=== PATIENT | male | born 1940 | race Caucasian/White ===

== ENCOUNTER → 2016-12-13 | Outpatient (CLI) | payer OTHER ==
[2016-12-13 12:48] LABS: ALT/SGPT 30 U/L (12-78); BLOOD UREA NITROGEN 9 mg/dl (7-18); BUN/CREATININE RATIO 7.8 (10-20); CALCIUM 9.2 mg/dl (8.5-10.1); CARBON DIOXIDE 24 mmol/L (21-32); CHLORIDE 108 mmol/L (98-107); CHOLESTEROL 176 mg/dl (0-200); GLUCOSE 95 mg/dl (70-99); POTASSIUM 3.8 mmol/L (3.5-5.1); SODIUM 140 mmol/L (136-145); TRIGLYCERIDES 131 mg/dl (0-150); VERY LOW DENSITY LIPOPROT CALC 26 mg/dl
[2016-12-13 12:55] LABS: ALKALINE PHOSPHATASE 123 U/L (45-117); AST/SGOT 21 U/L (15-37); CHOLESTEROL/HDL RATIO 4.4; HDL CHOLESTEROL 40 mg/dl; LDL CHOLESTEROL CALCULATED 110 mg/dl
== END | disposition home or self-care (01) ==
LOC: C.LABPVFM 07:35
PROVIDERS: ATTEND Nurse Practitioner Family
DX: R74.8 Abnormal levels of other serum enzymes (principal); Z13.220 Encounter for screening for lipoid disorders

== ENCOUNTER 2024-10-13 09:15 | Inpatient (IN) ==
[2024-10-13 09:50] LABS: Hematocrit (blood only) 40.0 % (42.0-52.0); Hemoglobin 13.7 g/dl (14.0-18.0); Immature Granulocytes # (auto) 0.01 K/uL (0.01-0.20); Immature Granulocytes % (auto) 0.2 %; Mean Corpuscular Hemoglobin 34.1 pg (25.0-34.0); Mean Corpuscular Volume 99.5 fL (80.0-100.0); Platelet Count 267 K/uL (130-400); RDW Standard Deviation 50.4 fL (36.4-46.3); Red Blood Count 4.02 M/uL (4.70-6.10); White Blood Count 4.65 K/ul (4.8-10.8)
--- NOTE | 2024-10-13 09:55 | XRay Report ---
XR chest 1V portable CLINICAL HISTORY: Abdominal Pain COMPARISON STUDY: None FINDINGS: Heart size and pulmonary vasculature are normal. Inspiration is shallow. There are is mild stranding opacity in the lung bases. No other consolidation or pleural effusion. No pneumothorax. IMPRESSION: Likely mild atelectasis in the lung bases. Follow-up as clinically indicated. ACT 112: Negative or not required by law. Electronically signed by: Thad Gilliam M.D. 10/13/2024 9:53 AM
[2024-10-13 10:09] LABS: Alanine Aminotransferase 14.0 U/L (7-52); Albumin Globulin Ratio 1.0 (0.9-2); Alkaline Phosphatase 105.0 U/L (34-104); Anion Gap 9.0 (3-11); Bilirubin,Total 0.5 mg/dl (0.2-1.0); Blood Urea Nitrogen 15.0 mg/dl (6-23); Calcium 9.1 mg/dl (8.6-10.3); Carbon Dioxide 23.0 mmol/L (21-32); Chloride 106.0 mmol/L (98-107); Creatinine Clr Calc Pharmacy 48.1 ml/min; Globulin 3.9 gm/dl (2.5-4.0); Glucose 152.0 mg/dl (70-99(Fasting)); Lipase 27.0 U/L (11-82); Potassium 3.4 mmol/L (3.5-5.1); Sodium 138.0 mmol/L (136-145); Total Protein 7.9 gm/dl (6.0-8.3)
[2024-10-13 10:19] LABS: INR 1.0 (0.9-1.1); Partial Thromboplastin Time 22 Seconds (21-31); Prothrombin Time 10.6 Seconds (9.0-12.0)
[2024-10-13] MEDS: HYDROmorphone INJ 0.5 MG/0.5 ML SYR IV STA (10:22)
[2024-10-13] MEDS: OPTIRAY 320 125ml IV ONE (10:39)
[2024-10-13] MEDS: ONDANSETRON INJ 2 MG/ML 2 ML VIAL IV STA ×2 (10:47→10:55)
[2024-10-13] MEDS ORDERED: Heparin IV Adult Wt-Based Low-Dose w/ INITIAL Bolus Protocol IV STA (10:56)
--- NOTE | 2024-10-13 10:57 | CT Scan Report ---
CT angio abdomen pelvis w con CLINICAL HISTORY: dissection. chest pain, syncope TECHNIQUE: Following the IV administration of 120 cc of Optiray, CT angiogram of the abdomen and pelv is was performed from the lung bases the proximal femora. Images are reviewed in the axial, sagittal, and coronal planes. 3-D MIPS images are created and assessed. All measurements were obtained accordi ng to NASCET criteria. IV contrast was administered without complication. A dose lowering technique was utilized adhering to the principles of ALARA. CT DOSE: 1987.92 mGy.cm COMPARISON STUDY: None FINDINGS: There is a moderate hiatal hernia. CTA: There is no abdominal aortic aneurysm or dissection. Mesenteric and renal arteries are widely pa tent. Visualized arterial outflow shows no significant narrowing. ABDOMEN: Liver, gallbladder, spleen, pancreas, and adrenal glands are unremarkable. Kidneys show no h ydronephrosis. Pelvis: Prostate is enlarged. Urinary bladder is nondistended. There is mild sigmoid diverticulosis. No acute diverticulitis. There is mild retained stool. No bowel inflammation or obstruction. No free fluid or free air. No enlarged adenopathy. Osseous structures: There is osteopenia. There are subacute healing fractures laterally at the right sixth and seventh ribs. There is diffuse lumbar degenerative disc disease. There are mild degenerativ e changes at the hips. No acute osseous finding seen. IMPRESSION: 1. No acute findings. No evidence of abdominal aortic dissection or aneurysm. 2. Otherwise as described. ACT 112: Negative or not required by law. The above report was generated using voice recognition software. It may contain grammatical, syntax o r spelling errors. Electronically signed by: Thad Gilliam M.D. 10/13/2024 10:55 AM
--- NOTE | 2024-10-13 10:58 | CT Scan Report ---
CT ANGIOGRAM OF THE CHEST CLINICAL HISTORY: Chest pain. Syncope. COMPARISON STUDY: Chest x-ray dated 10/13/2024. TECHNIQUE: Following the IV administration of 118 cc of Optiray 320, CT angiogram of the chest was pe rformed from the thoracic inlet to the upper abdomen utilizing the dissection protocol. Images are re viewed in the axial, sagittal, and coronal planes. 3-D MIPS images are created and assessed. IV contr ast was administered without complication. A dose lowering technique was utilized adhering to the pr inciples of ZHANE. The examination is degraded by motion artifact, as well as by streak artifact from the arms which could not be elevated above the chest. FINDINGS: Thyroid: Imaged portions of the thyroid gland are normal in size and attenuation. Thoracic aorta: The thoracic aorta is normal in caliber and demonstrates standard 3-vessel arch anato my. No dissection is seen. The arch vessels are widely patent. Pulmonary vasculature: The pulmonary trunk is normal in caliber. There are no central filling defects identified in the pulmonary vessels to suggest pulmonary embolus. Note that this examination was not specifically protocoled to assess for pulmonary emboli. Heart: The heart is normal in size and without pericardial effusion. There is coronary artery atheros clerosis. Lungs and pleural spaces: Evaluation of the lung parenchyma is degraded by motion artifact. No airspa ce consolidation or pleural effusion is identified. There is no pneumothorax. The trachea and central airways are clear. Dependent scarring/atelectasis is noted at both lung bases. A fat-containing Rojas dalek hernia is seen on the right. There are scattered calcified granulomas. Mediastinum: There are mildly enlarged mediastinal nodes. AP window nodes measure up to 1.5 cm in pawel rt axis. A right paratracheal node measures 1.4 cm in short axis. Angy: An enlarged right hilar node on image #113 measures 2.9 x 2.0 cm. No left hilar adenopathy is s een. Axillae: There is no axillary lymphadenopathy. Upper abdomen: There is a moderate to large hiatal hernia. Diverticulosis is noted in the partially i ana left colon. A 1.5 cm cyst is seen in the upper pole of the kidney. Skeletal structures: The skeletal structures are osteopenic. Degenerative change and mild hyperkyphos is is noted in the thoracic spine. There are mild chronic appearing compression deformities of C6 and C7. Arthritic change is noted in the shoulders. No lytic or blastic bony lesions are seen. There are numerous subacute appearing right-sided (second through sixth) rib fractures. IMPRESSION: 1. Unremarkable CT angiogram of the thoracic aorta. 2. There is no airspace consolidation or pleural effusion. 3. There are numerous subacute/healing right-sided rib fractures. 4. Moderate to large hiatal hernia. 5. There are nonspecific enlarged right hilar and mediastinal lymph nodes. These are pathologically i ndeterminant, and nonemergent follow-up with pulmonology is recommended as is a follow-up chest CT in 2-3 months time for reevaluation. 6. Additional findings as above. ACT 112: Positive. There are findings on this exam that require communication between the performing entity and the patient following Patient Test Result Information Act ([place] Act 112) guidelines. Electronically signed by: Mina Armenta M.D. 10/13/2024 10:56 AM
[2024-10-13] MEDS: ASPIRIN CHEW 324 MG PO STA (11:07)
--- NOTE | 2024-10-13 11:23 | History & Physical Report ---
Date of Service October 13, 2024 Assessment & Plan (1) STEMI (ST elevation myocardial infarction): (2) LBBB (left bundle branch block): (3) Syncope: (4) GERD without esophagitis: (5) BPH (benign prostatic hyperplasia): (6) Rib fractures: (7) Lymphadenopathy: (8) Tobacco use: (9) Hiatal hernia: (10) Fall: (11) Abrasion of leg, left: (12) Confusion: Plan 84yo male with history of BPH and GERD who presents from home after developing chest pain/upper abdominal pain about 0800 this morning followed by a suspected syncopal event. Upon arrival to [facility] ER his EKG showed a LBBB (no prior EKG for comparison available) and he had ongoing chest pain/abdominal pain. Despite nitroglycerin and narcotic pain medicine his pain persisted. Later EKGs showed ongoing evolution of his ST segments with V5/V6 ST segment elevation. Given his presentation, the presumed new LBBB, ST segment elevations, +troponin, etc. Dr Cameron Shaw from cardiology was contacted and Mr Douglas was advised to have emergent left heart catheterization. #acute IA / STEMI - -heparin infusion initiated in the ER -aspirin 325mg x 1 given -O2 applied, SL nitro given (but unfortunately caused hypotension), narcotics given for refractory pain -emergent cardiology consultation with Dr Cameron Shaw for left heart catheterization -results of left heart catheterization will dictate the rest of his care plan -echocardiogram -check lipids, hemoglobin a1c, TSH -will ultimately need high-intensity statin, aspirin (+ Plavix vs Brilinta), and beta yang if blood pressure can tolerate -serial troponins until peak -appreciate cardiology consultation #LBBB - -presumed 2nd to acute IA -echocardiogram #syncope - -could have had transient hypotension in the setting of his acute IA vs arrhythmia -echocardiogram to assess LV function, etc. -telemetry #fall with resulting right-sided rib fractures - -right 2nd-6th rib fractures - likely suffered when he had his fall ~2 weeks ago -pain control - pain meds, lidoderm patches, etc. -check a 25-OH vit D level while here -of note - fall was accidental; he had no prodromal cardiopulmonary symptoms prior to the fall #mild confusion - -pain meds in ER, hypotension, etc all likely to blame -serial exams, supportive care #hypokalemia - -replace, repeat BMP am -mag noted to be normal #hyperglycemia - -check a hemoglobin a1c while here, r/o pre-DM or T2DM #mild leukopenia, mild anemia - -chronic based on old lab values #GERD / hiatal hernia - -if on aspirin +/- Plavix/Brilinta he should be on PPI moving forward at a higher dose (was only on omeprazole 20mg daily pre-admission) #BPH - -continue flomax if BP will tolerate #head injury - -suffered 2 weeks ago when he fell -consider head CT #lymphadenopathy - -intra-thoracic lymph nodes seen on CT chest -with his smoking history this will need additional work-up; very suspicious for lung cancer #DVT proph - -heparin drip for now, post-cath DVT prophylaxis selection to be determined #abrasion of left leg - -due to fall today / syncopal event -local wound care History of Present Illness Chief Complaint: chest pain, ?syncope Primary Care Provider: CLARISSA Mujica 84yo male with h/o BPH and GERD who presented via EMS due to ongoing chest pain/upper abdominal pain beginning about 0800 this morning. Patient told his family that he slept poorly last night, then about 0800 he went out to the family's barn to feed 2 cows. After finishing that task he began to walk back to the house at which point he developed severe lower chest pain and upper abdominal pain. He "couldn't make it back" [to the house] and collapsed to the ground. He is not sure if he passed out. Apparently some individuals were driving past the house and saw him lying on the ground and stopped to check on him. At that point 911 was called. Since arrival to [facility] he has had continued lower chest and upper abdominal pain. EKG showed NSR with LBBB; unfortunately no prior EKG was available for comparison. He had transient relief of pain with IV dilaudid earlier in the ER visit. By the time of my assessment his pain was 6/10 on pain scale. Numerous times, however, he was grimacing in pain and holding his chest and upper abdomen with his arm. He does report having had a fall about 2 weeks ago. He struck the front of his head, his face, and the right chest wall. He had pain for several days in the right chest but today the pain he is having is much different. In addition to the pain he has been short of breath all morning, has had nausea, and had multiple episodes of emesis. He also suffered a mild abrasion inferior to the left knee from today's syncope/fall episode. During my assessment, due to ongoing pain, 1 SL nitro x 1 was given with relief of pain to 3/10. However, with the nitro, his BP dropped to the low 80s systolic. Fluid bolus was given, and heparin drip was started. Patient denies any prior episodes of exertional chest pain or exertional dyspnea. The fall 2 weeks ago was accidental, tripping on his shoelace. No headaches despite the report of hitting his head. Allergies Allergy/AdvReac Type Severity Reaction Status Date / Time No Known Allergies Allergy Verified 09/13/24 08:46 Home Medications Medication Instructions Recorded Confirmed Type omeprazole 20 mg capsule,delayed 20 mg PO DAILY #90 caps 02/17/24 10/13/24 Rx release tamsulosin 0.4 mg capsule 0.4 mg PO DAILY #30 caps 09/13/24 10/13/24 Rx aspirin 81 mg tablet,delayed 0 mg PO DAILY 10/13/24 10/13/24 History release (Adult Aspirin Regimen) melatonin 5 mg capsule 5 - 10 mg PO UD 10/13/24 10/13/24 History triamcinolone acetonide 0.1 % 1 applic topical UD 10/13/24 10/13/24 History topical cream Past Med/Surg History Problem List (Updated 10/14/24 @ 03:32 by Daniel Stein MD) STEMI (ST elevation myocardial infarction) Acute myocardial infarction Confusion Abrasion of leg, left Fall Hiatal hernia Tobacco use Lymphadenopathy Rib fractures Syncope LBBB (left bundle branch block) NSTEMI (non-ST elevated myocardial infarction) Insomnia Depression Cognitive change Weakness of left leg Balance problem Back pain Dermatitis (Chronic) Dry mouth (Chronic) Medical History (Updated 10/14/24 @ 03:32 by Daniel Stein MD) GERD without esophagitis BPH (benign prostatic hyperplasia) Surgical History History of oral surgery History of back surgery Family History (Updated 10/13/24 @ 12:35 by Daniel Stein MD) Brother Cancer Myocardial infarction Sister Cancer Father Lung cancer Denies family history of Ovarian cancer Prostate cancer Breast cancer Colorectal cancer Social History (Updated 10/13/24 @ 12:36 by Daniel Stein MD) Smoking Status: Current some day smoker Tobacco Type: Cigars Cigarettes Per Day: ongoing cigar use; smoked cigarettes during teenage years; Second Hand Exposure: No; Do You Dip or Chew Tobacco: No; Tobacco Cessation Education Requested by Patient: No Hx Alcohol Use: No Hx Substance Use: No Preferred Language: Georgian Communication Ability: Effective Visual Impairment: Limited Hearing Ability: Use of Hearing Aid Legal Billing Clerk Required: No Beliefs That Will Affect Care: None marital status: Single Current Living Situation: Family Current Living Situation Comment: SON current occupational status: retired current occupation: retired [employer] How many Children do You have: 7 Other Information That Helps Us Care for You: No Feels Safe at Home: Yes Safety Concerns: Feels Safe At This Time Childhood Exposure to Second-Hand Smoke: Yes Diet: regular caffeine: Yes (Coffee and soda) during the past year weight has: remained stable Dental Care, Regularly: No Physical Activity Frequency: Daily Seatbelt Use: always Sunscreen Use: No Do you think of yourself as: straight/heterosexual Gender Identity: Male Assistive Devices: Denture - Upper, Denture - Lower, Glasses and Hearing Aid - Left Review of Systems Review of Systems: gen - no recent illnesses, no fevers HENT - no URI symptoms CV - chest pain, syncope; no edema pulm - dyspnea, but no cough; no TAVARES at baseline GI - upper abd pain, n/v musculo - c/o right arm pain "from the cuff"; right chest wall pain (ribs) skin - no rashes neuro - no headaches, no focal motor weakness endo - no history of diabetes Physical Exam Physical Exam: gen - confused, very uncomfortable, grimacing in pain at times skin - ashen color at times; abrasion inferior to left knee on tibial plateau region; no generalized rash eyes - PERRL HENT - MM dry, no lesions neck - no JVD, no lymph nodes heart - tones quite distant, s1 s2, RRR, no obvious murmur lungs - CTA b/l abd - tender upper abdomen to palpation, BS+, ND, no HSM ext - no edema, pulses b/l feet 2+ vascular - radial pulses 2+ b/l neuro - motor strength grossly 5/5 x 4 exts psych - poor historian, seems mildly confused Results & Data Results & Data Vital Signs (Past 12 Hours) Vital Signs Temp Pulse Pulse Resp BP BP Pulse Ox 10/13/24 10:20 59 L 18 144/89 H 100 10/13/24 09:41 52 L 10/13/24 09:40 95 10/13/24 09:02 36.9 C 55 L 18 127/81 95 O2 Del Method 10/13/24 10:20 Room Air 10/13/24 09:41 10/13/24 09:40 Room Air 10/13/24 09:02 Room Air Laboratory Results Laboratory Results - last 24 hr 10/13/24 10/13/24 09:30 11:41 WBC 4.65 L RBC 4.02 L Hgb 13.7 L Hct 40.0 L MCV 99.5 MCH 34.1 H MCHC 34.3 RDW Std Deviation 50.4 H RDW Coeff of Jo 13.7 Plt Count 267 MPV 9.9 Immature Gran % (Auto) 0.2 Neut % (Auto) 72.2 Lymph % (Auto) 17.2 Maries % (Auto) 8.4 Eos % (Auto) 1.1 Baso % (Auto) 0.9 Neut # (Auto) 3.36 Lymph # (Auto) 0.80 L Maries # (Auto) 0.39 Eos # (Auto) 0.05 Baso # (Auto) 0.04 Immature Gran # (Auto) 0.01 PT 10.6 INR 1.0 APTT 22 PTT Ratio 0.8 Sodium 138 Potassium 3.4 L Chloride 106 Carbon Dioxide 23 Anion Gap 9 BUN 15 Creatinine 1.30 Est Cr Clr Drug Dosing 48.1 eGFR 54.85 BUN/Creatinine Ratio 11.5 Glucose 152 H Calcium 9.1 Magnesium 1.9 Total Bilirubin 0.5 AST 19 ALT 14 Alkaline Phosphatase 105 H Troponin I High Sens 115.0 H* 142.6 H* D Total Protein 7.9 Albumin 4.0 Globulin 3.9 Albumin/Globulin Ratio 1.0 Lipase 27 Diagnostic Findings Chest X-Ray 10/13/24 09:35 XR chest 1V portable CLINICAL HISTORY: Abdominal Pain COMPARISON STUDY: None FINDINGS: Heart size and pulmonary vasculature are normal. Inspiration is shallow. There are is mild stranding opacity in the lung bases. No other consolidation or pleural effusion. No pneumothorax. IMPRESSION: Likely mild atelectasis in the lung bases. Follow-up as clinically indicated. ACT 112: Negative or not required by law. Electronically signed by: Thad Gilliam M.D. 10/13/2024 9:53 AM Abdomen/Pelvis CTA 10/13/24 10:16 CT angio abdomen pelvis w con CLINICAL HISTORY: dissection. chest pain, syncope TECHNIQUE: Following the IV administration of 120 cc of Optiray, CT angiogram of the abdomen and pelvis was performed from the lung bases the proximal femora. Images are reviewed in the axial, sagittal, and coronal planes. 3-D MIPS images are created and assessed. All measurements were obtained according to NASCET criteria. IV contrast was administered without complication. A dose lowering technique was utilized adhering to the principles of ALARA. CT DOSE: 1987.92 mGy.cm COMPARISON STUDY: None FINDINGS: There is a moderate hiatal hernia. CTA: There is no abdominal aortic aneurysm or dissection. Mesenteric and renal arteries are widely patent. Visualized arterial outflow shows no significant narrowing. ABDOMEN: Liver, gallbladder, spleen, pancreas, and adrenal glands are unremarkable. Kidneys show no hydronephrosis. Pelvis: Prostate is enlarged. Urinary bladder is nondistended. There is mild sig moid diverticulosis. No acute diverticulitis. There is mild retained stool. No bowel inflammation or obstruction. No free fluid or free air. No enlarged adenopathy. Osseous structures: There is osteopenia. There are subacute healing fractures laterally at the right sixth and seventh ribs. There is diffuse lumbar degenerative disc disease. There are mild degenerative changes at the hips. No acute osseous finding seen. IMPRESSION: 1. No acute findings. No evidence of abdominal aortic dissection or aneurysm. 2. Otherwise as described. ACT 112: Negative or not required by law. The above report was generated using voice recognition software. It may contain grammatical, syntax or spelling errors. Electronically signed by: Thad Gilliam M.D. 10/13/2024 10:55 AM Chest CTA 10/13/24 10:16 CT ANGIOGRAM OF THE CHEST CLINICAL HISTORY: Chest pain. Syncope. COMPARISON STUDY: Chest x-ray dated 10/13/2024. TECHNIQUE: Following the IV administration of 118 cc of Optiray 320, CT angiogram of the chest was performed from the thoracic inlet to the upper abdomen utilizing the dissection protocol. Images are reviewed in the axial, sagittal, and coronal planes. 3-D MIPS images are created and assessed. IV contrast was administered without complication. A dose lowering technique was utilized adhering to the principles of ALARA. The examination is degraded by motion artifact, as well as by streak artifact from the arms which could not be elevated above the chest. FINDINGS: Thyroid: Imaged portions of the thyroid gland are normal in size and a ttenuation. Thoracic aorta: The thoracic aorta is normal in caliber and demonstrates standard 3-vessel arch anatomy. No dissection is seen. The arch vessels are widely patent. Pulmonary vasculature: The pulmonary trunk is normal in caliber. There are no central filling defects identified in the pulmonary vessels to suggest pulmonary embolus. Note that this examination was not specifically protocoled to assess for pulmonary emboli. Heart: The heart is normal in size and without pericardial effusion. There is coronary artery atherosclerosis. Lungs and pleural spaces: Evaluation of the lung parenchyma is degraded by motion artifact. No airspace consolidation or pleural effusion is identified. There is no pneumothorax. The trachea and central airways are clear. Dependent scarring/atelectasis is noted at both lung bases. 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 There are scattered calcified granulomas. Mediastinum: There are mildly enlarged mediastinal nodes. AP window nodes measure up to 1.5 cm in short axis. A right paratracheal node measures 1.4 cm in short axis. Angy: An enlarged right hilar node on image #113 measures 2.9 x 2.0 cm. No left hilar adenopathy is seen. Axillae: There is no axillary lymphadenopathy. Upper abdomen: There is a moderate to large hiatal hernia. Diverticulosis is noted in the partially imaged left colon. A 1.5 cm cyst is seen in the upper pole of the kidney. Skeletal structures: The skeletal structures are osteopenic. Degenerative change and mild hyperkyphosis is noted in the thoracic spine. There are mild chronic appearing compression deformities of C6 and C7. Arthritic change is noted in the shoulders. No lytic or blastic bony lesions are seen. There are numerous subacute appearing right-sided (second through sixth) rib fractures. IMPRESSION: 1. Unremarkable CT angiogram of the thoracic aorta. 2. There is no airspace consolidation or pleural effusion. 3. There are numerous subacute/healing right-sided rib fractures. 4. Moderate to large hiatal hernia. 5. There are nonspecific enlarged right hilar and mediastinal lymph nodes. These are pathologically indeterminant, and nonemergent follow-up with pulmonology is recommended as is a follow-up chest CT in 2-3 months time for reevaluation. 6. Additional findings as above. ACT 112: Positive. There are findings on this exam that require communication between the performing entity and the patient following Patient Test Result Information Act ([place] Act 112) guidelines. Electronically signed by: Mina Armenta M.D. 10/13/2024 10:56 AM EKG #1 - NSR, LBBB, V2 with ST depression EKG #2 - NSR, LBBB, V5/V6 mild J-point elevation / ST segment elevation Code Status & VTE Plan Code Status full code PG Care Time/CCT Total # of Minutes Spent Total Time Spent with Patient: Total time spent is greater than 50% in coordination of care (as documented) at patient's floor/unit and/or counseling patient: Coding Level of Care Code 38787 INT INP/OBS CARE 3/75MIN Diagnoses STEMI (ST elevation myocardial infarction) I21.3 LBBB (left bundle branch block) I44.7 Syncope R55 GERD without esophagitis K21.9 Benign prostatic hyperplasia with urinary frequency N40.1; R35.0 Lower urinary tract symptom detail: urinary frequency Lower urinary tract symptom presence: symptoms present Rib fractures S22.49XA Lymphadenopathy R59.1 Tobacco use Z72.0 Hiatal hernia K44.9 Fall W19.XXXA Abrasion of leg, left S80.812A Confusion R41.0 (5) BPH (benign prostatic hyperplasia) Lower urinary tract symptom detail: urinary frequency Lower urinary tract symptom presence: symptoms present Qualified Code(s): N40.1 - Benign prostatic hyperplasia with lower urinary tract symptoms; R35.0 - Frequency of micturition
[2024-10-13] MEDS: NITROGLYCERIN SL 0.4 MG/TAB TAB ONE ×2 (11:48→12:13)
[2024-10-13] MEDS: HEPARIN SOD (PORCINE) 1000 UNIT/ML IV ONE (12:02)
[2024-10-13] MEDS: HEPARIN 25000 UNIT/500 ML D5W 25,000 UNITS/500 ML BAG IV SCH (12:04)
[2024-10-13] MEDS: SODIUM CHLORIDE 0.9% 1,000 ML IV SCH (12:13)
[2024-10-13 12:21] LABS: Magnesium 1.9 mg/dl (1.7-2.4)
[2024-10-13] MEDS: HEPARIN (PORCINE) 1000 UNIT/ML 10 ML (CATH LAB USE ONLY) ONE (13:52)
[2024-10-13] MEDS: MIDAZOLAM HCL 1 MG/ML 2ML VIAL ONE (13:58)
[2024-10-13] MEDS: niCARdipine 2,000 MCG/20 ML SYR ONE (13:58)
[2024-10-13] MEDS: ONDANSETRON INJ 2 MG/ML 2 ML VIAL ONE (13:58)
[2024-10-13] MEDS: NITROGLYCERIN/D5W 100MCG/ML 20ML SYR ONE (13:58)
[2024-10-13] MEDS: CLOPIDOGREL BISULFATE 300 MG TAB ONE (13:58)
[2024-10-13] MEDS: ATROPINE SULFATE 0.1 MG/ML 10ML SYR IV ONE (13:58)
--- NOTE | 2024-10-13 13:58 | Post Anesthesia Assessment ---
Date of Service October 13, 2024 Post Sedation Assessment Vital Signs Temp Pulse Pulse Resp BP BP Pulse Ox 10/13/24 12:16 70 18 105/65 98 10/13/24 12:10 89 L 10/13/24 12:00 55 L 18 89/60 L 89 L 10/13/24 11:00 57 L 18 136/86 95 10/13/24 10:20 59 L 18 144/89 H 100 10/13/24 09:41 52 L 10/13/24 09:40 95 10/13/24 09:02 98.4 F 55 L 18 127/81 95 O2 Del Method O2 Flow Rate 10/13/24 12:16 Nasal Cannula 3 10/13/24 12:10 Room Air, Nasal Cannula 0 10/13/24 12:00 Room Air 10/13/24 11:00 Room Air 10/13/24 10:20 Room Air 10/13/24 09:41 10/13/24 09:40 Room Air 10/13/24 09:02 Room Air Recovery Score Activity: Moves 4 extremities Respiration: Deep Breath/Cough Circulation: +/-20% PreAnes Value Consciousness: Fully Awake Oxygen Saturation: O2 needed for >90% Discharge Sedation Level of Care: Fast Track Phase II
--- NOTE | 2024-10-13 13:58 | Pre Anesthesia Assessment ---
Date of Service October 13, 2024 Pre Sedation Assessment Vital Signs Temp Pulse Pulse Resp BP BP Pulse Ox 10/13/24 12:16 70 18 105/65 98 10/13/24 12:10 89 L 10/13/24 12:00 55 L 18 89/60 L 89 L 10/13/24 11:00 57 L 18 136/86 95 10/13/24 10:20 59 L 18 144/89 H 100 10/13/24 09:41 52 L 10/13/24 09:40 95 10/13/24 09:02 98.4 F 55 L 18 127/81 95 O2 Del Method O2 Flow Rate 10/13/24 12:16 Nasal Cannula 3 10/13/24 12:10 Room Air, Nasal Cannula 0 10/13/24 12:00 Room Air 10/13/24 11:00 Room Air 10/13/24 10:20 Room Air 10/13/24 09:41 10/13/24 09:40 Room Air 10/13/24 09:02 Room Air Cardiovascular + regular rate Respiratory + respiratory effort normal Pre-Sedation Airway Assessment Smoking Status: Current some day smoker Hx Sleep Apnea: No Hx Difficult Intubation: No Short, Thick Neck: No Thyromental Distance: < 3.5 Finger Breadths Oral Cavity: + WNL Mallampati Class: III ASA: ASA3 Procedure Planning Contraindications for Sedation: none Current Medications Reviewed: Yes Notes The planned sedation has been discussed with the patient. Informed Consent was obtained. I have identified the patient, determined the appropriateness of sedation and have assessed the patient immediately prior to the procedure. All medicine(s) and interventions are by my order.
[2024-10-13] MEDS: OPTIRAY 350 ONE (13:59)
--- NOTE | 2024-10-13 13:59 | Cardiac Catheterization ---
[facility] Data: Metal Buffer Cardiac Status Clinical evaluation leading to the procedure CAD Presenation: STEMI Anginal Classification: CCS IV Diagnostic Physicians Name: Cameron Shaw MD Closure Device Recommendations: PCI without planned CABG Cardiac Cath Procedure Full Procedure Date October 13, 2024 Pre-Procedure Diagnosis Pre-Procedure Diagnosis: STEMI AUC Score AUC Score: 9 Post-Procedure Diagnosis Post-Procedure Diagnosis: Severe CAD, Successful PCI and Normal Intracardiac Pressures Procedure(s) Performed Procedure(s) Performed: Coronary Angiography, Left Heart Cath and Drug Eluting Stent Key Sander Cameron Shaw MD Smoke Eater(s) Todd Estimated Blood Loss Estimated Blood Loss: 35 Medication(s) Medication(s): Clopidogrel, Fentanyl, Heparin, Lidocaine 1%, Nicardipine, Nitroglycerin, Norepinephrine and Versed Summary of Findings Indication: High risk ACS, left bundle branch block with progressive inferolateral ST elevation Access: 6 Fr slender right radial artery Catheters: EBU 3.5 guide, JR4 guide, AL-1 guide, AR-1 guide and pigtail Findings: LM -medium caliber, 30-40% ostial, 40% distal stenosis at bifurcation LAD -medium caliber, 30% ostial, 3040% mid segment stenosis at takeoff of bifurcating D2. Remainder of LAD without significant disease and wraps around apex. 25% proximal bifurcating D2. Circumflex -medium caliber, 40% mid segment stenosis. OM2, left PLB without significant disease. RCA -dominant, medium caliber, very high anterior takeoff, 100% acute mid occlusion. -- PCI -- Antithrombotic therapy: Heparin, clopidogrel Procedure: Due to high, anterior takeoff of RCA difficulty finding and cannulating artery. Eventually able to cannulate with AR-1 guide Shoe Turner 50 wire passed across lesion into distal vessel Mid RCA lesion predilated with 2.5 compliant balloon Dilated lesion stented with 3.0 x 22 mm Thom drug-eluting stent Stent post-dilated with 3.5 noncompliant balloon Post procedure EMMANUEL 3 flow, stent well expanded with minimal residual stenosis and no apparent cardiac complications. During procedure persistent hypotension following sedation requiring norepinephrine which was weaned off at completion of procedure. Post PCI LVEDP -17 Arterial Closure: TR band Summary: 1. Acute 100% mid RCA occlusion 2. Moderate non-culprit coronary artery disease - 30-40% ostial, 40% distal left main 30% ostial, 30% mid LAD 40% mid circumflex 3. Normal intracardiac filling pressure 4. Transient cardiogenic shock 5. Successful PCI of mid RCA with single drug-eluting stent (3.0 x 22 mm Thom; postdilated with 3.5 NC). Recommendations: Admit to ICU for continued monitoring Loaded with clopidogrel 600 mg in Metal Buffer Continue dual-antiplatelet therapy for at least 1 year. Trend troponins until peak, Check Echo Start beta-yang, COMFORT as BP allows High-dose statin Hemodynamics Rest Ao:: 82/51/64 Final Ao: 99/56/76 LV: 101/17 Recommendations Recommendations: PCI without planned CABG Radiation Exposure (mGy) 2533 Contrast (mls) 150 Anesthesia Moderate 3954-9239 Procedural Complication(s) None Disposition ICU I attest to the content of the Intraoperative Record and any orders documented therein. Any exceptions are noted below. [facility] Card Cath Procedure Codes Cardiac Catheterization Procedure 1: Cardiovascular Cath Procedures: 02057 Coronaries and LHC (+/-LV) Moderate Sedation Procedure 1: Sedation/Anesthesia: 32614 Mod Sedation by the same physician;Init15 Min Child Age 5 & Up Procedure 2: Sedation/Anesthesia: 99638 Mod Sedation by the same physician; Ea [id number] Minutes Stenting Procedure 1: Cardiovascular Stent Procedures: 21838 Perc transluminal revascularization of acute sub/total occl, aMI PG Care Time/CCT Total # of Minutes Spent Total Time Spent with Patient: Total time spent is greater than 50% in coordination of care (as documented) at patient's floor/unit and/or counseling patient:
[2024-10-13] MEDS ORDERED: STAT IV Infusion **Titration per Protocol STA (14:04)
--- NOTE | 2024-10-13 14:16 | Emergency Department Note ---
Impression & Plan NSTEMI (non-ST elevated myocardial infarction), LBBB (left bundle branch block), Syncope ED Provider Note NAME: DENY YOON AGE: 84 SEX: M : 1940 ARRIVES VIA: Ambulance INFORMANT: Patient, ED PROVIDER(S): Yang Walker MD CHIEF COMPLAINT: Chest pain, syncope HPI: This is an 84-year-old male present for chest pain and syncope. Patient was brought by EMS after he was found down outside. Patient was complaining of chest pain, abdominal pain, nausea and vomiting while en route. Patient had a episode where he syncopized outside on the driveway. He skinned his left knee. He states he did not hit his head. Does not take a blood thinner. Reports some slight shortness of breath as well. He is currently clutching his chest. ROS: See above HPI for pertinent positives & negatives. A total of 10 systems reviewed and were otherwise negative. PAST MEDICAL HISTORY: See Below PAST SURGICAL HISTORY: See Below FAMILY HISTORY: See Below SOCIAL HISTORY: See Below HOME MEDICATIONS: See Below ALLERGIES: See Below VITALS: See Below PHYSICAL EXAMINATION: General: Moderate to severe distress due to pain Head: Normocephalic and atraumatic Eyes: Normal inspection, extraocular muscles intact Ear, nose, throat: Normal external exam Neck: Normal range of motion Respiratory: lungs clear to auscultation bilaterally Cardiovascular: Regular rate/rhythm, no murmur GI: soft, nontender, no guarding or rebound Extremities: nontender, moves all extremities, 2+ pulses in all extremities Neuro: The patient awake and alert, appropriately conversive, no focal deficits, symmetric faces Skin: Warm, dry, and intact MEDICAL DECISION MAKING: This is a 84-year-old male presenting for chest pain/syncope. Patient had chest pain and syncope which concerning for cardiogenic syncope versus dissection versus PE. Will do CTA of the chest and abdomen. -First ECG independently interpreted by me with normal sinus rhythm, rate of 60, normal ND, left bundle branch block, normal QTc, no ST segment elevations consistent with STEMI criteria or Sgarbossa criteria, T wave inversions in lead II and aVL -Second ECG independently interpreted by me with normal sinus rhythm, rate of 66, normal ND], normal QRS, left bundle branch block, no ST segment elevations consistent with STEMI criteria, T wave inversions in lead II and aVL - CTA chest abdomen pelvis reveals no dissection or PE. -Patient troponin does come back elevated at over 80. - At this time with persisent chest pain, elevated troponin, clutching chest, EKG changes, will admit for NSTEMI/cardiac syncope. Will start heparin drip at this time. - Cares with Dr. Stein for admission Differential diagnosis: ACS, PE, dissection, NSTEMI, pneumonia, pneumothorax Independent History obtained from: Granddaughter Diagnostics interpreted by me: ECG: See above Cardiac Monitoring: An order was placed for continuous cardiac monitoring. The monitor shows a rate of 72 with sinus rhythm. Past Med/Surg History Problem List (Updated 10/14/24 @ 15:40 by Yang Walker MD) Ischemic cardiomyopathy Vitamin D deficiency Prediabetes STEMI (ST elevation myocardial infarction) Acute myocardial infarction Confusion Abrasion of leg, left Fall Hiatal hernia Tobacco use Lymphadenopathy Rib fractures Syncope (Acute) LBBB (left bundle branch block) (Acute) NSTEMI (non-ST elevated myocardial infarction) (Acute) Insomnia Depression Cognitive change Weakness of left leg Balance problem Back pain Dermatitis (Chronic) Dry mouth (Chronic) Medical History (Updated 10/14/24 @ 15:40 by Yang Walker MD) GERD without esophagitis BPH (benign prostatic hyperplasia) Surgical History History of oral surgery History of back surgery Family History (Updated 10/13/24 @ 12:35 by Daniel Stein MD) Brother Cancer Myocardial infarction Sister Cancer Father Lung cancer Denies family history of Ovarian cancer Prostate cancer Breast cancer Colorectal cancer Social History (Updated 10/13/24 @ 12:36 by Daniel Stein MD) Smoking Status: Current some day smoker Tobacco Type: Cigars Cigarettes Per Day: ongoing cigar use; smoked cigarettes during teenage years; Second Hand Exposure: No; Do You Dip or Chew Tobacco: No; Hx Alcohol Use: No Hx Substance Use: No Preferred Language: Citizen Of [place] Communication Ability: Effective Visual Impairment: Limited Hearing Ability: Use of Hearing Aid Synthetic Resin Operator Required: No Beliefs That Will Affect Care: None marital status: Single Current Living Situation: Family Current Living Situation Comment: SON current occupational status: retired current occupation: retired [employer] How many Children do You have: 7 Feels Safe at Home: Yes Childhood Exposure to Second-Hand Smoke: Yes Diet: regular caffeine: Yes (Coffee and soda) during the past year weight has: remained stable Dental Care, Regularly: No Physical Activity Frequency: Daily Seatbelt Use: always Sunscreen Use: No Do you think of yourself as: straight/heterosexual Gender Identity: Male Assistive Devices: Cane Allergies Allergies Allergy/AdvReac Type Severity Reaction Status Date / Time No Known Allergies Allergy Verified 09/13/24 08:46 Home Meds Home Medications Medication Instructions Recorded Confirmed aspirin 81 mg tablet,delayed 0 mg PO DAILY 10/13/24 10/13/24 release (Adult Aspirin Regimen) melatonin 5 mg capsule 5 - 10 mg PO UD 10/13/24 10/13/24 triamcinolone acetonide 0.1 % 1 applic topical UD 10/13/24 10/13/24 topical cream Previous Rx's Medication Instructions Recorded omeprazole 20 mg capsule,delayed 20 mg PO DAILY #90 caps 02/17/24 release tamsulosin 0.4 mg capsule 0.4 mg PO DAILY #30 caps 09/13/24 Results & Data (ED) Vital Signs Vital Signs - 24 hr 10/13/24 09:02 10/13/24 09:40 10/13/24 09:41 Temperature 36.9 C Temperature Source Oral Pulse Rate 55 L 52 L Pulse Rate [Apical] Pulse Rhythm [Apical] Respiratory Rate 18 Respiratory Effort / Characteristics Non-Labored Spontaneous Respiratory Depth Normal Respiratory Pattern Regular Blood Pressure 127/81 Blood Pressure [Right Arm] Blood Pressure Mean 96 Blood Pressure Mean [Right Arm] Blood Pressure Position [Right Arm] Pulse Oximetry 95 95 Oxygen Delivery Method Room Air Room Air Oxygen Flow Rate Sepsis Recent Fever Within 48 Hours No Sepsis New/Unexplained Change in Mental Status N/A Sepsis Action Taken by Nursing No Action Required Fraction of Inspired Oxygen - Titration Pulse Oximetry Post Tiitration 10/13/24 10:20 10/13/24 11:00 10/13/24 12:00 Temperature Temperature Source Pulse Rate Pulse Rate [Apical] 59 L 57 L 55 L Pulse Rhythm [Apical] Respiratory Rate 18 18 18 Respiratory Effort / Characteristics Non-Labored Spontaneous Non-Labored Spontaneous Non-Labored Spontaneous Respiratory Depth Normal Normal Normal Respiratory Pattern Regular Regular Regular Blood Pressure Blood Pressure [Right Arm] 144/89 H 136/86 89/60 L Blood Pressure Mean Blood Pressure Mean [Right Arm] 107 102 69 Blood Pressure Position [Right Arm] Pulse Oximetry 100 95 89 L Oxygen Delivery Method Room Air Room Air Room Air Oxygen Flow Rate Sepsis Recent Fever Within 48 Hours Sepsis New/Unexplained Change in Mental Status Sepsis Action Taken by Nursing Fraction of Inspired Oxygen - Titration Pulse Oximetry Post Tiitration 10/13/24 12:10 10/13/24 12:16 10/13/24 14:00 Temperature Temperature Source Pulse Rate Pulse Rate [Apical] 70 72 Pulse Rhythm [Apical] Regular Respiratory Rate 18 18 Respiratory Effort / Characteristics Non-Labored Spontaneous Non-Labored Spontaneous Respiratory Depth Normal Normal Respiratory Pattern Regular Regular Blood Pressure Blood Pressure [Right Arm] 105/65 127/79 Blood Pressure Mean Blood Pressure Mean [Right Arm] 78 95 Blood Pressure Position [Right Arm] Semi-fowlers Pulse Oximetry 89 L 98 98 Oxygen Delivery Method Room Air Nasal Cannula Nasal Cannula Nasal Cannula Oxygen Flow Rate 0 3 3 Sepsis Recent Fever Within 48 Hours Sepsis New/Unexplained Change in Mental Status Sepsis Action Taken by Nursing Fraction of Inspired Oxygen - Titration 3 Pulse Oximetry Post Tiitration 93 Laboratory Data 10/14/24 04:51 10/14/24 04:51 Lab Results 10/13/24 10/13/24 10/13/24 Range/Units 09:30 11:41 13:28 WBC 4.65 L (4.8-10.8) K/ul RBC 4.02 L (4.70-6.10) M/uL Hgb 13.7 L (14.0-18.0) g/dl Hct 40.0 L (42.0-52.0) % MCV 99.5 (80.0-100.0) fL MCH 34.1 H (25.0-34.0) pg MCHC 34.3 (32.0-36.0) g/dL RDW Std Deviation 50.4 H (36.4-46.3) fL RDW Coeff of Jo 13.7 (11.5-14.5) % Plt Count 267 (130-400) K/uL MPV 9.9 (9.4-12.4) fL Immature Gran % (Auto) 0.2 % Neut % (Auto) 72.2 % Lymph % (Auto) 17.2 % Moody % (Auto) 8.4 % Eos % (Auto) 1.1 % Baso % (Auto) 0.9 % Neut # (Auto) 3.36 (1.40-6.50) K/uL Lymph # (Auto) 0.80 L (1.20-3.40) K/uL Moody # (Auto) 0.39 (0.11-0.59) K/uL Eos # (Auto) 0.05 (0.00-0.50) K/uL Baso # (Auto) 0.04 (0.00-0.20) K/uL Immature Gran # (Auto) 0.01 (0.01-0.20) K/uL PT 10.6 (9.0-12.0) Seconds INR 1.0 (0.9-1.1) APTT 22 (21-31) Seconds PTT Ratio 0.8 Activ Coag Time Kaolin 187 H (94-140) SECONDS Sodium 138 (136-145) mmol/L Potassium 3.4 L (3.5-5.1) mmol/L Chloride 106 (98-107) mmol/L Carbon Dioxide 23 (21-32) mmol/L Anion Gap 9 (3-11) BUN 15 (6-23) mg/dl Creatinine 1.30 (0.6-1.4) mg/dl Est Cr Clr Drug Dosing 48.1 ml/min eGFR 54.85 BUN/Creatinine Ratio 11.5 (10-20) Glucose 152 H (70-99(Fasting)) mg/dl Calcium 9.1 (8.6-10.3) mg/dl Magnesium 1.9 (1.7-2.4) mg/dl Total Bilirubin 0.5 (0.2-1.0) mg/dl AST 19 (13-39) U/L ALT 14 (7-52) U/L Alkaline Phosphatase 105 H (34-104) U/L Troponin I High Sens 115.0 H* 142.6 H* D (0-20) pg/ml Total Protein 7.9 (6.0-8.3) gm/dl Albumin 4.0 (3.4-5.0) gm/dl Globulin 3.9 (2.5-4.0) gm/dl Albumin/Globulin Ratio 1.0 (0.9-2) Lipase 27 (11-82) U/L Administered Medications Aspirin (Aspirin 81 Mg Ectab) 81 mg PO [facility] Stop: 11/13/24 08:59 Last Admin: 10/14/24 09:09 Dose: 81 mg Documented By: LISA Atorvastatin Calcium (Atorvastatin 40 Mg Tab) 40 mg PO [facility] Stop: 11/13/24 08:59 Last Admin: 10/14/24 09:10 Dose: 40 mg Documented By: LISA Clopidogrel Bisulfate (Clopidogrel Bisulfate 75 Mg Tab) 75 mg PO [facility] Stop: 11/13/24 08:59 Last Admin: 10/14/24 09:09 Dose: 75 mg Documented By: LISA Metoprolol Tartrate (Metoprolol Tartrate 25 Mg Tab) 12.5 mg PO BID [facility] Stop: 11/13/24 13:14 Last Admin: 10/14/24 14:22 Dose: 12.5 mg Documented By: CORY Discontinued Medications Aspirin (Aspirin Chew 324 Mg) 324 mg PO NOW [facility] Stop: 10/13/24 10:53 Last Admin: 10/13/24 11:07 Dose: Not Given Documented By: BRIDGET Atropine Sulfate (Atropine Sulfate 0.1 Mg/Ml 10ml Syr) Confirm Administered Dose 1 mg IV .STK-MED ONE Stop: 10/13/24 13:21 Last Admin: 10/13/24 13:58 Dose: 1 mg Documented By: NADIA Clopidogrel Bisulfate (Clopidogrel Bisulfate 300 Mg Tab) Confirm Administered Dose 600 mg .ROUTE .STK-MED ONE Stop: 10/13/24 13:39 Last Admin: 10/13/24 13:58 Dose: 600 mg Documented By: NADIA Ergocalciferol (Ergocalciferol 1250 Mcg (50,000 Units) Cap) 1,250 mcg PO ONE ONE Stop: 10/14/24 09:01 Last Admin: 10/14/24 09:09 Dose: 1,250 mcg Documented By: LISA Fentanyl Citrate (Fentanyl Citrate Pf 100 Mcg/2 Ml Vial) Confirm Administered Dose 100 mcg .ROUTE .STK-MED ONE Stop: 10/13/24 12:57 Last Increment: 10/13/24 13:51 Dose: 50 mcg Documented By: NADIA Heparin Sodium (Porcine) (Heparin Sod (Porcine) 1000 Unit/Ml) 1 units IV NOW ONE Stop: 10/13/24 11:12 Last Admin: 10/13/24 12:02 Dose: 4,000 units Documented By: BRIDGET Co-signed By: AALIYAH Heparin Sodium (Porcine) (Heparin (Porcine) 1000 Unit/Ml 10 Ml (Sr. [employer] Use Only)) Confirm Administered Dose 10,000 units .ROUTE .STK-MED ONE Stop: 10/13/24 12:57 Last Admin: 10/13/24 13:52 Dose: 10,000 units Documented By: NADIA Heparin Sodium/Sodium Chloride (Heparin In Nss Infusion 1000 Unit/500 Ml (2 U/Ml) Bag) Confirm Administered Dose 3,000 units IV .STK-MED ONE Stop: 10/13/24 12:57 Last Admin: 10/13/24 13:52 Dose: 3,000 units Documented By: NADIA Hydromorphone HCl (Hydromorphone Inj 0.5 Mg/0.5 Ml Syr) 0.5 mg IV NOW STA Stop: 10/13/24 10:18 Last Admin: 10/13/24 10:22 Dose: 0.5 mg Documented By: BRIDGET Heparin Sodium/Dextrose (Heparin 81809 Unit/500 Ml D5w) 25,000 units in 500 mls @ 20 mls/hr IV .Q24H KAREN; Protocol Stop: 11/12/24 11:14 Last Titration: 10/13/24 15:02 Dose: Infused Documented By: LARA Co-signed By: CLAUDE Admin: 10/13/24 12:04 Dose: 1,000 units/hr, 20 mls/hr Documented By: BRIDGET Co-signed By: AALIYAH Sodium Chloride (Nss) 1,000 mls @ 999 mls/hr IV .Q1H1M KAREN Stop: 10/13/24 13:15 Last Infusion: 10/13/24 15:02 Dose: Infused Documented By: Admin: 10/13/24 12:13 Dose: 999 mls/hr Documented By: BRIDGET Norepinephrine Bitartrate (Levophed/D5w) 4 mg in 250 mls @ 17.419 mls/hr IV .[id number] KAREN; Protocol Stop: 11/12/24 14:14 Last Admin: 10/14/24 03:48 Dose: Not Given Documented By: ANA LILIA Admin: 10/13/24 15:01 Dose: Not Given Documented By: LARA Magnesium Sulfate/Dextrose (Magnesium Sulfate / D5w) 1 gm in 100 mls @ 50 mls/hr IV Q2H KAREN Stop: 10/14/24 00:44 Last Infusion: 10/14/24 00:52 Dose: Infused Documented By: ANA LILIA Admin: 10/13/24 23:02 Dose: 50 mls/hr Documented By: ANA LILIA Infusion: 10/13/24 23:02 Dose: Infused Documented By: ANA LILIA Admin: 10/13/24 21:13 Dose: 50 mls/hr Documented By: ANA LILIA Ioversol (Optiray 320 125ml) 118 ml IV ONCE ONE Stop: 10/13/24 10:38 Last Admin: 10/13/24 10:39 Dose: 118 ml Documented By: CHRISTOPHER Ioversol (Optiray 350) Confirm Administered Dose 1 ml .ROUTE .STK-MED ONE Stop: 10/13/24 12:58 Last Admin: 10/13/24 13:59 Dose: 150 ml Documented By: NADIA Midazolam HCl (Midazolam Hcl 1 Mg/Ml 2ml Vial) Confirm Administered Dose 2 mg .ROUTE .STK-MED ONE Stop: 10/13/24 12:57 Last Admin: 10/13/24 13:58 Dose: 2 mg Documented By: NADIA Kelly (Icu Protocol For Hyperglycemia) 1 each N/A ACHS KAREN Stop: 10/15/24 16:29 Last Admin: 10/14/24 07:33 Dose: Not Given Documented By: Admin: 10/13/24 21:36 Dose: Not Given Documented By: ANA LILIA Admin: 10/13/24 15:52 Dose: Not Given Documented By: LARA Kelly ([facility] Electrolyte Replacement Protocol) 1 each N/A BID@06,18 [facility]; Protocol Stop: 10/21/24 05:59 Last Admin: 10/14/24 05:56 Dose: 1 each Documented By: ANA LILIA Nicardipine HCl (Nicardipine 2,000 Mcg/20 Ml Syr) Confirm Administered Dose 2,000 mcg .ROUTE .STK-MED ONE Stop: 10/13/24 12:58 Last Admin: 10/13/24 13:58 Dose: 2,000 mcg Documented By: NADIA Nitroglycerin (Nitroglycerin Sl 0.4 Mg/Tab Tab) Confirm Administered Dose 0.4 mg .ROUTE .STK-MED ONE Stop: 10/13/24 11:48 Last Admin: 10/13/24 11:48 Dose: 0.4 mg Documented By: BRIDGET Nitroglycerin (Nitroglycerin Sl 0.4 Mg/Tab Tab) Confirm Administered Dose 0.4 mg .ROUTE .[facility] ONE Stop: 10/13/24 12:01 Last Admin: 10/13/24 12:13 Dose: Not Given Documented By: BRIDGET Nitroglycerin/Dextrose (Nitroglycerin/D5w 100mcg/Ml 20ml Syr) Confirm Administered Dose 2,000 mcg .ROUTE .[facility] ONE Stop: 10/13/24 12:58 Last Admin: 10/13/24 13:58 Dose: 2,000 mcg Documented By: NADIA Norepinephrine Bitartrate (Norepinephrine/D5w 4 Mg/250 Ml) Confirm Administered Dose 4 mg IV .[facility] ONE Stop: 10/13/24 12:48 Last Admin: 10/13/24 15:01 Dose: Not Given Documented By: LARA Ondansetron HCl (Ondansetron Inj 2 Mg/Ml 2 Ml Vial) 4 mg IV NOW STA Stop: 10/13/24 10:43 Last Admin: 10/13/24 10:47 Dose: 4 mg Documented By: BRIDGET Ondansetron HCl (Ondansetron Inj 2 Mg/Ml 2 Ml Vial) 4 mg IV NOW STA Stop: 10/13/24 10:47 Last Admin: 10/13/24 10:55 Dose: Not Given Documented By: BRIDGET Ondansetron HCl (Ondansetron Inj 2 Mg/Ml 2 Ml Vial) Confirm Administered Dose 4 mg .ROUTE .[facility] ONE Stop: 10/13/24 13:22 Last Admin: 10/13/24 13:58 Dose: 4 mg Documented By: NADIA Pantoprazole Sodium (Pantoprazole 40 Mg Tab) 40 mg PO NOW STA Stop: 10/13/24 21:36 Last Admin: 10/13/24 21:52 Dose: 40 mg Documented By: ANA LILIA Potassium Chloride (Potassium Chloride Crtab 20 Meq Tabcr) 40 meq PO NOW STA Stop: 10/13/24 11:21 Last Admin: 10/13/24 15:17 Dose: Not Given Documented By: LARA Potassium Chloride (Potassium Chloride 20 Meq/15 Ml Udc) 40 meq PO NOW STA Stop: 10/13/24 16:00 Last Admin: 10/13/24 16:12 Dose: 40 meq Documented By: LARA Potassium Phosphate (Pot Phosphate Monobasic W/ Sod Tab) 1 tab PO Q4H KAREN Stop: 10/14/24 14:01 Last Admin: 10/14/24 13:06 Dose: 1 tab Documented By: Admin: 10/14/24 09:09 Dose: 1 tab Documented By: Admin: 10/14/24 06:38 Dose: 1 tab Documented By: ANA LILIA Imaging Data Radiologist's Impression: Chest X-Ray 10/13/24 09:35 XR chest 1V portable CLINICAL HISTORY: Abdominal Pain COMPARISON STUDY: None FINDINGS: Heart size and pulmonary vasculature are normal. Inspiration is shallow. There are is mild stranding opacity in the lung bases. No other consolidation or pleural effusion. No pneumothorax. IMPRESSION: Likely mild atelectasis in the lung bases. Follow-up as clinically indicated. ACT 112: Negative or not required by law. Electronically signed by: hTad Gilliam M.D. 10/13/2024 9:53 AM Abdomen/Pelvis CTA 10/13/24 10:16 CT angio abdomen pelvis w con CLINICAL HISTORY: dissection. chest pain, syncope TECHNIQUE: Following the IV administration of 120 cc of Optiray, CT angiogram of the abdomen and pelvis was performed from the lung bases the proximal femora. Images are reviewed in the axial, sagittal, and coronal planes. 3-D MIPS images are created and assessed. All measurements were obtained according to NASCET criteria. IV contrast was administered without complication. A dose lowering technique was utilized adhering to the principles of ALARA. CT DOSE: 1987.92 mGy.cm COMPARISON STUDY: None FINDINGS: There is a moderate hiatal hernia. CTA: There is no abdominal aortic aneurysm or dissection. Mesenteric and renal arteries are widely patent. Visualized arterial outflow shows no significant narrowing. ABDOMEN: Liver, gallbladder, spleen, pancreas, and adrenal glands are unremarkable. Kidneys show no hydronephrosis. Pelvis: Prostate is enlarged. Urinary bladder is nondistended. There is mild sigmoid diverticulosis. No acute diverticulitis. There is mild retained stool. No bowel inflammation or obstruction. No free fluid or free air. No enlarged adenopathy. Osseous structures: There is osteopenia. There are subacute healing fractures laterally at the right sixth and seventh ribs. There is diffuse lumbar degenerative disc disease. There are mild degenerative changes at the hips. No acute osseous finding seen. IMPRESSION: 1. No acute findings. No evidence of abdominal aortic dissection or aneurysm. 2. Otherwise as described. ACT 112: Negative or not required by law. The above report was generated using voice recognition software. It may contain grammatical, syntax or spelling errors. Electronically signed by: Thad Gilliam M.D. 10/13/2024 10:55 AM Chest CTA 10/13/24 10:16 CT ANGIOGRAM OF THE CHEST CLINICAL HISTORY: Chest pain. Syncope. COMPARISON STUDY: Chest x-ray dated 10/13/2024. TECHNIQUE: Following the IV administration of 118 cc of Optiray 320, CT angiogram of the chest was performed from the thoracic inlet to the upper abdomen utilizing the dissection protocol. Images are reviewed in the axial, sagittal, and coronal planes. 3-D MIPS images are created and assessed. IV contrast was administered without complication. A dose lowering technique was utilized adhering to the principles of ALARA. The examination is degraded by motion artifact, as well as by streak artifact from the arms which could not be elevated above the chest. FINDINGS: Thyroid: Imaged portions of the thyroid gland are normal in size and attenuation. Thoracic aorta: The thoracic aorta is normal in caliber and demonstrates standard 3-vessel arch anatomy. No dissection is seen. The arch vessels are widely patent. Pulmonary vasculature: The pulmonary trunk is normal in caliber. There are no central filling defects identified in the pulmonary vessels to suggest pulmonary embolus. Note that this examination was not specifically protocoled to assess for pulmonary emboli. Heart: The heart is normal in size and without pericardial effusion. There is coronary artery atherosclerosis. Lungs and pleural spaces: Evaluation of the lung parenchyma is degraded by motion artifact. No airspace consolidation or pleural effusion is identified. There is no pneumothorax. The trachea and central airways are clear. Dependent scarring/atelectasis is noted at both lung bases. 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 There are scattered calcified granulomas. Mediastinum: There are mildly enlarged mediastinal nodes. AP window nodes measure up to 1.5 cm in short axis. A right paratracheal node measures 1.4 cm in short axis. Angy: An enlarged right hilar node on image #113 measures 2.9 x 2.0 cm. No left hilar adenopathy is seen. Axillae: There is no axillary lymphadenopathy. Upper abdomen: There is a moderate to large hiatal hernia. Diverticulosis is noted in the partially imaged left colon. A 1.5 cm cyst is seen in the upper pole of the kidney. Skeletal structures: The skeletal structures are osteopenic. Degenerative change and mild hyperkyphosis is noted in the thoracic spine. There are mild chronic appearing compression deformities of C6 and C7. Arthritic change is noted in the shoulders. No lytic or blastic bony lesions are seen. There are numerous subacute appearing right-sided (second through sixth) rib fractures. IMPRESSION: 1. Unremarkable CT angiogram of the thoracic aorta. 2. There is no airspace consolidation or pleural effusion. 3. There are numerous subacute/healing right-sided rib fractures. 4. Moderate to large hiatal hernia. 5. There are nonspecific enlarged right hilar and mediastinal lymph nodes. These are pathologically indeterminant, and nonemergent follow-up with pulmonology is recommended as is a follow-up chest CT in 2-3 months time for reevaluation. 6. Additional findings as above. ACT 112: Positive. There are findings on this exam that require communication between the performing entity and the patient following Patient Test Result Information Act ([place] Act 112) guidelines. Electronically signed by: Mina Armenta M.D. 10/13/2024 10:56 AM Discharge Plan Visit Data Chief Complaint: Syncope ED Provider: Yang Walker Discharge Problem: NSTEMI (non-ST elevated myocardial infarction), LBBB (left bundle branch block), Syncope Patient Disposition: Admitted As Inpatient Condition: Serious Discharge Instructions Interventions: ED Discharge Assessment Last Done: 10/13/24 12:27
[2024-10-13] MEDS: NOREPINEPHRINE/D5W 4 MG/250 ML PLCT IV SCH (15:01)
[2024-10-13] MEDS: NOREPINEPHRINE/D5W 4 MG/250 ML IV ONE (15:01)
[2024-10-13] MEDS: POTASSIUM CHLORIDE CRTAB 20 MEQ TABCR PO STA (15:17)
[2024-10-13 15:50] LABS: Appearance Urine Clear (Clear); Bacteria Urine Automated None Seen (None Seen); Cast Urine Automated 0-2 /lpf (0-2); Epithelial Cell Urine Auto 0-2 /hpf (0-2); Glucose Urine UA Negative (Negative); RBC Urine Automated 0-2 /hpf (0-2); Starch Talc Urine Present (None Prsent); WBC Urine Automated 0-5 /hpf (0-5)
[2024-10-13] MEDS: POTASSIUM CHLORIDE 20 MEQ/15 ML UDC PO STA (16:12)
--- NOTE | 2024-10-13 16:33 | Critical Care Consultation ---
Date of Consultation October 13, 2024 Assessment & Plan (1) Acute myocardial infarction: Status post PCI x 2 to mid RCA. Follow-up echo. Continue aspirin, Plavix, high-dose statin, beta-blockade when blood pressure and heart rate allow. Defer initiation of COMFORT/ARB to cardiology. Monitor in ICU for cardiac arrhythmias and other potential complications, (2) Lymphadenopathy: Patient is a smoker and has nonspecific right-sided hilar lymphadenopathy. Recommended follow-up CT in 6 weeks as an outpatient. Patient high risk for lung cancer especially small cell lung carcinoma which can present with bulky adenopathy. Calcium levels and sodium levels unremarkable. Plan Probable downgrade out of ICU tomorrow. History of Present Illness Reason for Consultation: Acute CO requiring vasopressors Attending Physician: Daniel Stein MD History of Present Illness 84-year-old male presented with syncope. He was found to have an acute CO in the ER and required PCI x 2 to the RCA. 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 He is doing well at this time denies any chest pain or shortness of breath. Notably patient did have a fall about 2 weeks ago and had right-sided rib fractures on 2nd-6th ribs. Chest CTA completed in the ER today revealed a moderate to large hiatal hernia and nonspecifically enlarged right hilar mediastinal lymph nodes. Follow-up CT in 2 to 3 months was recommended. Numerous subacute healing rib fractures noted. Allergies Allergy/AdvReac Type Severity Reaction Status Date / Time No Known Allergies Allergy Verified 09/13/24 08:46 Home Medications Medication Instructions Recorded Confirmed Type omeprazole 20 mg capsule,delayed 20 mg PO DAILY #90 caps 02/17/24 10/13/24 Rx release tamsulosin 0.4 mg capsule 0.4 mg PO DAILY #30 caps 09/13/24 10/13/24 Rx aspirin 81 mg tablet,delayed 0 mg PO DAILY 10/13/24 10/13/24 History release (Adult Aspirin Regimen) melatonin 5 mg capsule 5 - 10 mg PO UD 10/13/24 10/13/24 History triamcinolone acetonide 0.1 % 1 applic topical UD 10/13/24 10/13/24 History topical cream Patient History Medical History (Updated 10/13/24 @ 16:29 by Wilmar Mao MD) GERD without esophagitis BPH (benign prostatic hyperplasia) Surgical History History of oral surgery History of back surgery Family History (Updated 10/13/24 @ 12:35 by Daniel Stein MD) Brother Cancer Myocardial infarction Sister Cancer Father Lung cancer Denies family history of Ovarian cancer Prostate cancer Breast cancer Colorectal cancer Social History (Updated 10/13/24 @ 12:36 by Daniel Stein MD) Smoking Status: Current some day smoker Tobacco Type: Cigars Cigarettes Per Day: ongoing cigar use; smoked cigarettes during teenage years; Second Hand Exposure: No; Do You Dip or Chew Tobacco: No; Tobacco Cessation Education Requested by Patient: No Hx Alcohol Use: No Hx Substance Use: No Preferred Language: Namibian Communication Ability: Effective Visual Impairment: Limited Hearing Ability: Use of Hearing Aid Min[employer] 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 Beliefs That Will Affect Care: None marital status: Single Current Living Situation: Family Current Living Situation Comment: SON current occupational status: retired current occupation: retired [employer] How many Children do You have: 7 Other Information That Helps Us Care for You: No Feels Safe at Home: Yes Safety Concerns: Feels Safe At This Time Childhood Exposure to Second-Hand Smoke: Yes Diet: regular caffeine: Yes (Coffee and soda) during the past year weight has: remained stable Dental Care, Regularly: No Physical Activity Frequency: Daily Seatbelt Use: always Sunscreen Use: No Do you think of yourself as: straight/heterosexual Gender Identity: Male Assistive Devices: Denture - Upper, Denture - Lower, Glasses and Hearing Aid - Left Review of Systems Review of Systems: All systems reviewed & are unremarkable except as noted in HPI & below Physical Exam Physical Exam: Constitutional: Patient appears to be of their stated age. Patient is in no apparent distress. Patient is well-developed. Eyes: Pupils are equal round and reactive to light. Conjunctivae are normal. Anicteric sclera. Ears nose, mouth and throat: Mallampati class 2. Normal posterior oropharynx. Uvula is midline. Neck: Trachea is midline. Visual inspection is normal. Respiratory: Clear to auscultation bilaterally. No use of accessory muscles. No significant clubbing noted. Cardiovascular: Regular rate and rhythm. No murmurs. No edema. Gastrointestinal: Normal bowel sounds, soft, nontender and nondistended. No hepatosplenomegaly noted. Musculoskeletal: No cyanosis. Patient is able to move all extremities. Strength is 5 out of 5 in the upper and lower extremities. Skin: No rashes, warm dry and intact. Neurologic: No obvious focal neurological deficits seen. Psychiatric: Alert and oriented x3 with a euthymic affect. Results & Data Results & Data Vital Signs (Past 12 Hours) Vital Signs Temp Pulse Pulse Resp BP BP Pulse Ox 10/13/24 16:00 62 10/13/24 15:53 109/73 10/13/24 15:53 109/73 10/13/24 15:48 66 24 86 L 10/13/24 15:39 121/68 10/13/24 15:39 63 19 93 10/13/24 15:23 123/69 10/13/24 15:15 68 19 95 10/13/24 15:08 113/77 10/13/24 15:07 36.4 C L 10/13/24 15:06 64 16 117/75 92 10/13/24 14:00 72 18 127/79 98 10/13/24 12:16 70 18 105/65 98 10/13/24 12:10 89 L 10/13/24 12:00 55 L 18 89/60 L 89 L 10/13/24 11:00 57 L 18 136/86 95 10/13/24 10:20 59 L 18 144/89 H 100 10/13/24 09:41 52 L 10/13/24 09:40 95 10/13/24 09:02 36.9 C 55 L 18 127/81 95 O2 Del Method O2 Flow Rate 10/13/24 16:00 10/13/24 15:53 10/13/24 15:53 10/13/24 15:48 10/13/24 15:39 10/13/24 15:39 10/13/24 15:23 10/13/24 15:15 10/13/24 15:08 10/13/24 15:07 10/13/24 15:06 10/13/24 14:00 Nasal Cannula 3 10/13/24 12:16 Nasal Cannula 3 10/13/24 12:10 Room Air, Nasal Cannula 0 10/13/24 12:00 Room Air 10/13/24 11:00 Room Air 10/13/24 10:20 Room Air 10/13/24 09:41 10/13/24 09:40 Room Air 10/13/24 09:02 Room Air Coding Level of Care Code 56163 INT INP/OBS CARE 255MIN Diagnoses Acute myocardial infarction I21.9 Lymphadenopathy R59.1
[2024-10-13 19:03] LABS: ANTI-Xa, UFH(UnfractionatedHep 0.55 IU/ml (0.3-0.7)
--- NOTE | 2024-10-13 19:05 | XCELERA ---
[id number] [id number]
[2024-10-13 20:43] LABS: Anion Gap 7.0 (3-11); Blood Urea Nitrogen 15.0 mg/dl (6-23); Calcium 8.8 mg/dl (8.6-10.3); Carbon Dioxide 22.0 mmol/L (21-32); Chloride 106.0 mmol/L (98-107); Creatinine Clr Calc Pharmacy 53.0 ml/min; Glucose 136.0 mg/dl (70-99(Fasting)); Magnesium 1.9 mg/dl (1.7-2.4); Potassium 4.6 mmol/L (3.5-5.1); Sodium 135.0 mmol/L (136-145)
[2024-10-13] MEDS: MAGNESIUM SULFATE / D5W 1 GM/100 ML BAG IV SCH (21:13)
--- NOTE | 2024-10-13 22:11 | Cardiology Consultation ---
Date of Consultation October 13, 2024 Assessment & Plan (1) Acute myocardial infarction: Acute 100% mid RCApost BRETT 10/13/2024 2. Moderate nonculprit CAD40% ostial/distal left main 3. ICMEF 35 to 40% 4. Mild mitral regurgitation 5. Intraprocedure cardiogenic shock 6. GERD Stable post PCI earlier today. No recurrent chest pain. Blood pressure stable off norepinephrine No apparent access site complications Monitor in ICU overnight Trend troponin until peak Continue DAPT with aspirin, clopidogrel Continue statin Continue PPI Start beta-yang as BP allows Appreciate ICU and hospital medicine care. History of Present Illness Attending Physician: Daniel Stein MD History of Present Illness Mr. Douglas is an 84-year-old male who is seen emergently in the setting of high risk ACS. He presented with chest pain for approximately 1 hour prior to arrival. Pain became so severe while walking to his spine that he fell to the ground before being noticed by bystanders. In ED had persistent pain despite continued attempts at medical management which was complicated by transient hypotension. ECG showed left bundle branch block not known to be old and serial ECGs showed what appeared to be new inferolateral ST elevation. 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 Had moderate nonculprit disease including 30-40% ostial and 40% distal left main. Had hypotension during procedure requiring norepinephrine which was weaned off at completion of procedure. Post procedure seen in the ICU. Feeling well denied any chest pain or shortness of breath on room air. Postprocedure echo showed EF 35 to 40% with severe inferior/inferolateral hypokinesis and mild lateral hypokinesis., Mild MR. Past medical history includes GERD, BPH, prior fall with rib fractures. Allergies Allergy/AdvReac Type Severity Reaction Status Date / Time No Known Allergies Allergy Verified 09/13/24 08:46 Home Medications Medication Instructions Recorded Confirmed Type omeprazole 20 mg capsule,delayed 20 mg PO DAILY #90 caps 02/17/24 10/13/24 Rx release tamsulosin 0.4 mg capsule 0.4 mg PO DAILY #30 caps 09/13/24 10/13/24 Rx aspirin 81 mg tablet,delayed 0 mg PO DAILY 10/13/24 10/13/24 History release (Adult Aspirin Regimen) melatonin 5 mg capsule 5 - 10 mg PO UD 10/13/24 10/13/24 History triamcinolone acetonide 0.1 % 1 applic topical UD 10/13/24 10/13/24 History topical cream Patient History Medical History (Updated 10/13/24 @ 16:29 by Wilmar Mao MD) GERD without esophagitis BPH (benign prostatic hyperplasia) Surgical History History of oral surgery History of back surgery Family History (Updated 10/13/24 @ 12:35 by Daniel Stein MD) Brother Cancer Myocardial infarction Sister Cancer Father Lung cancer Denies family history of Ovarian cancer Prostate cancer Breast cancer Colorectal cancer Social History (Updated 10/13/24 @ 12:36 by Daniel Stein MD) Smoking Status: Current some day smoker Tobacco Type: Cigars Cigarettes Per Day: ongoing cigar use; smoked cigarettes during teenage years; Second Hand Exposure: No; Do You Dip or Chew Tobacco: No; Tobacco Cessation Education Requested by Patient: No Hx Alcohol Use: No Hx Substance Use: No Preferred Language: Latvian Communication Ability: Effective Visual Impairment: Limited Hearing Ability: Use of Hearing Aid 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 Beliefs That Will Affect Care: None marital status: Single Current Living Situation: Family Current Living Situation Comment: SON current occupational status: retired current occupation: retired [employer] How many Children do You have: 7 Other Information That Helps Us Care for You: No Feels Safe at Home: Yes Safety Concerns: Feels Safe At This Time Childhood Exposure to Second-Hand Smoke: Yes Diet: regular caffeine: Yes (Coffee and soda) during the past year weight has: remained stable Dental Care, Regularly: No Physical Activity Frequency: Daily Seatbelt Use: always Sunscreen Use: No Do you think of yourself as: straight/heterosexual Gender Identity: Male Assistive Devices: Denture - Upper, Denture - Lower, Glasses and Hearing Aid - Left Review of Systems Review of Systems: All systems reviewed & are unremarkable except as noted in HPI & below Physical Exam Physical Exam: General: Comfortable HEENT: Sclerae anicteric Lungs: Clear to auscultation anteriorly Cardiac: Regular rate and rhythm, no murmurs. Vascular: TR band in place, no surrounding hematoma Abdomen: Soft, nontender Extremities: Well perfused, no peripheral edema Neuro: Nonfocal Psych: Alert oriented Results & Data Vital Signs (Past 12 Hours) Vital Signs Temp Pulse Pulse Resp BP BP Pulse Ox 10/13/24 17:38 93/62 L 10/13/24 17:27 62 22 94 10/13/24 17:23 92/66 L 10/13/24 17:21 64 20 95 10/13/24 17:08 97/69 L 10/13/24 17:00 63 20 97 10/13/24 16:53 110/73 10/13/24 16:42 60 27 H 97 10/13/24 16:38 108/71 10/13/24 16:36 63 18 96 10/13/24 16:36 112/67 10/13/24 16:09 73 26 H 95 10/13/24 16:08 118/76 10/13/24 16:00 62 10/13/24 15:57 61 24 95 10/13/24 15:53 109/73 10/13/24 15:53 109/73 10/13/24 15:48 66 24 86 L 10/13/24 15:39 121/68 10/13/24 15:39 63 19 93 10/13/24 15:23 123/69 10/13/24 15:15 68 19 95 10/13/24 15:08 113/77 10/13/24 15:07 97.5 F L 10/13/24 15:06 64 16 117/75 92 10/13/24 14:00 72 18 127/79 98 10/13/24 12:16 70 18 105/65 98 10/13/24 12:10 89 L 10/13/24 12:00 55 L 18 89/60 L 89 L 10/13/24 11:00 57 L 18 136/86 95 10/13/24 10:20 59 L 18 144/89 H 100 O2 Del Method O2 Flow Rate 10/13/24 17:38 10/13/24 17:27 10/13/24 17:23 10/13/24 17:21 10/13/24 17:08 10/13/24 17:00 10/13/24 16:53 10/13/24 16:42 10/13/24 16:38 10/13/24 16:36 10/13/24 16:36 10/13/24 16:09 10/13/24 16:08 10/13/24 16:00 10/13/24 15:57 10/13/24 15:53 10/13/24 15:53 10/13/24 15:48 10/13/24 15:39 10/13/24 15:39 10/13/24 15:23 10/13/24 15:15 10/13/24 15:08 10/13/24 15:07 10/13/24 15:06 10/13/24 14:00 Nasal Cannula 3 10/13/24 12:16 Nasal Cannula 3 10/13/24 12:10 Room Air, Nasal Cannula 0 10/13/24 12:00 Room Air 10/13/24 11:00 Room Air 10/13/24 10:20 Room Air PG Care Time/CCT Total # of Minutes Spent Total Time Spent with Patient: Total time spent is greater than 50% in coordination of care (as documented) at patient's floor/unit and/or counseling patient: Coding Level of Care Code 26787 INT INP/OBS CARE 3/75MIN Diagnoses Acute myocardial infarction I21.9
[2024-10-14 05:14] LABS: Hematocrit (blood only) 35.9 % (42.0-52.0); Hemoglobin 11.9 g/dl (14.0-18.0); Immature Granulocytes # (auto) 0.01 K/uL (0.01-0.20); Immature Granulocytes % (auto) 0.1 %; Mean Corpuscular Hemoglobin 33.1 pg (25.0-34.0); Mean Corpuscular Volume 99.7 fL (80.0-100.0); Platelet Count 226 K/uL (130-400); RDW Standard Deviation 51.7 fL (36.4-46.3); Red Blood Count 3.60 M/uL (4.70-6.10); White Blood Count 7.90 K/ul (4.8-10.8)
[2024-10-14 05:31] LABS: Anion Gap 5.0 (3-11); Blood Urea Nitrogen 14.0 mg/dl (6-23); Calcium 8.6 mg/dl (8.6-10.3); Carbon Dioxide 24.0 mmol/L (21-32); Chloride 108.0 mmol/L (98-107); Cholesterol 137.0 mg/dl (0-200); Creatinine Clr Calc Pharmacy 50.4 ml/min; Glucose 104.0 mg/dl (70-99(Fasting)); HDL Cholesterol 37.0 mg/dl; Magnesium 2.3 mg/dl (1.7-2.4); Potassium 4.2 mmol/L (3.5-5.1); Sodium 137.0 mmol/L (136-145); Triglycerides 76.0 mg/dl (0-150)
[2024-10-14 05:47] LABS: Thyroid Stimulating Hormone 0.52 uIu/ml (0.300-4.500)
[2024-10-14] MEDS: ICU ELECTROLYTE REPLACEMENT PROTOCOL SCH (05:56)
[2024-10-14] MEDS: POT PHOSPHATE MONOBASIC W/ SOD TAB PO SCH (06:38)
[2024-10-14 07:18] LABS: Hemoglobin A1C 6.0 % (4.5-5.6)
[2024-10-14] MEDS: ERGOCALCIFEROL 1250 MCG (50,000 UNITS) CAP PO ONE (09:09)
[2024-10-14] MEDS: ASPIRIN 81 MG ECTAB PO SCH (09:09)
[2024-10-14] MEDS: CLOPIDOGREL BISULFATE 75 MG TAB PO SCH (09:09)
[2024-10-14] MEDS: ATORVASTATIN 40 MG TAB PO SCH (09:10)
--- NOTE | 2024-10-14 10:43 | Critical Care Progress Note ---
Date of Service October 14, 2024 Assessment & Plan (1) Acute myocardial infarction: Plan: Status post PCI x 2 to mid RCA. Follow-up echo. Continue aspirin, Plavix, high-dose statin, beta-blockade when blood pressure and heart rate allow. Defer initiation of COMFORT/ARB to cardiology. Monitor in ICU for cardiac arrhythmias and other potential complications, (2) Lymphadenopathy: Plan: Patient is a smoker and has nonspecific right-sided hilar lymphadenopathy. Recommended follow-up CT in 6 weeks as an outpatient. Patient high risk for lung cancer especially small cell lung carcinoma which can present with bulky adenopathy. Calcium levels and sodium levels unremarkable. Plan Probable downgrade this am. Admission and Anticipated Discharge Date Admission Date: October 13, 2024 Subjective "I feel great and would like to go home." Patient hemodynamically stable this am. Plan for downgrade. Review of Systems 2 Review of Systems: All systems reviewed & are unremarkable except as noted in HPI & below Physical Exam 2 Physical Exam: Constitutional: Patient appears to be of their stated age. Patient is in no apparent distress. Patient is well-developed. Eyes: Pupils are equal round and reactive to light. Conjunctivae are normal. Anicteric sclera. Ears nose, mouth and throat: Mallampati class 2. Normal posterior oropharynx. Uvula is midline. Neck: Trachea is midline. Visual inspection is normal. Respiratory: Clear to auscultation bilaterally. No use of accessory muscles. No significant clubbing noted. Cardiovascular: Regular rate and rhythm. No murmurs. No edema. Gastrointestinal: Normal bowel sounds, soft, nontender and nondistended. No hepatosplenomegaly noted. Musculoskeletal: No cyanosis. Patient is able to move all extremities. Strength is 5 out of 5 in the upper and lower extremities. Skin: No rashes, warm dry and intact. Neurologic: No obvious focal neurological deficits seen. Psychiatric: Alert and oriented x3 with a euthymic affect. Results & Data Results & Data Vital Signs (Past 12 Hours) Vital Signs Temp Pulse Resp BP Pulse Ox O2 Del Method 10/14/24 05:15 67 18 103/60 93 Room Air 10/14/24 04:08 36.6 C 62 19 91/57 L 91 Room Air 10/14/24 03:08 58 L 18 86/49 L 91 Room Air 10/14/24 02:00 60 15 95/52 L 91 Room Air 10/14/24 01:15 36.7 C 73 24 99/63 L 95 Room Air 10/14/24 00:03 60 14 97/60 L 93 Room Air 10/13/24 23:00 63 23 91/49 L 93 Room Air 10/13/24 22:57 63 Laboratory Results 10/14/24 04:51 10/14/24 04:51 Abnormal Lab Results 10/13/24 10/13/24 10/13/24 09:30 11:41 13:28 WBC RBC Hgb Hct MCV MCH MCHC RDW Std Deviation RDW Coeff of Jo Plt Count MPV Immature Gran % (Auto) Neut % (Auto) Lymph % (Auto) [place] % (Auto) Eos % (Auto) Baso % (Auto) Neut # (Auto) Lymph # (Auto) [place] # (Auto) Eos # (Auto) Baso # (Auto) Immature Gran # (Auto) Activ Coag Time Kaolin 187 H Heparin Anti-Xa, Unfract Sodium Potassium Chloride Carbon Dioxide Anion Gap BUN Creatinine Est Cr Clr Drug Dosing eGFR BUN/Creatinine Ratio Glucose POC Glucose Estimat Average Glucose Hemoglobin A1c Calcium Phosphorus Magnesium 1.9 Troponin I High Sens 115.0 H* 142.6 H* D Triglycerides Cholesterol LDL Cholesterol, Calc VLDL Cholesterol, Calc HDL Cholesterol Cholesterol/HDL Ratio 25-OH Vitamin D Total TSH Urine Color Urine Appearance Urine pH Ur Specific [place] Urine Protein Urine Glucose (UA) Urine Ketones Urine Blood Urine Nitrite Urine Bilirubin Urine Urobilinogen Ur Leukocyte Esterase Urine WBC (Auto) Urine RBC (Auto) U Hyaline Cast (Auto) U Epithel Cells (Auto) Urine Bacteria (Auto) [place] Crystals Urine Comment Nasal Screen MRSA (PCR) 10/13/24 10/13/24 10/13/24 15:15 15:17 15:23 WBC RBC Hgb Hct MCV MCH MCHC RDW Std Deviation RDW Coeff of Jo Plt Count MPV Immature Gran % (Auto) Neut % (Auto) Lymph % (Auto) [place] % (Auto) Eos % (Auto) Baso % (Auto) Neut # (Auto) Lymph # (Auto) [place] # (Auto) Eos # (Auto) Baso # (Auto) Immature Gran # (Auto) Activ Coag Time Kaolin Heparin Anti-Xa, Unfract Sodium Potassium Chloride Carbon Dioxide Anion Gap BUN Creatinine Est Cr Clr Drug Dosing eGFR BUN/Creatinine Ratio Glucose POC Glucose 133 H Estimat Average Glucose Hemoglobin A1c Calcium Phosphorus Magnesium Troponin I High Sens Triglycerides Cholesterol LDL Cholesterol, Calc VLDL Cholesterol, Calc HDL Cholesterol Cholesterol/HDL Ratio 25-OH Vitamin D Total TSH Urine Color Yellow Urine Appearance Clear Urine pH 6.0 Ur Specific [place] > 1.045 H Urine Protein 1+ H Urine Glucose (UA) Negative Urine Ketones 1+ H Urine Blood 1+ H Urine Nitrite Negative Urine Bilirubin Negative Urine Urobilinogen Negative Ur Leukocyte Esterase Negative Urine WBC (Auto) 0-5 Urine RBC (Auto) 0-2 U Hyaline Cast (Auto) 0-2 U Epithel Cells (Auto) 0-2 Urine Bacteria (Auto) None Seen [place] Crystals Present H Urine Comment Nasal Screen MRSA (PCR) Negative 10/13/24 10/13/24 10/13/24 17:58 18:04 19:52 WBC RBC Hgb Hct MCV MCH MCHC RDW Std Deviation RDW Coeff of Jo Plt Count MPV Immature Gran % (Auto) Neut % (Auto) Lymph % (Auto) [place] % (Auto) Eos % (Auto) Baso % (Auto) Neut # (Auto) Lymph # (Auto) [place] # (Auto) Eos # (Auto) Baso # (Auto) Immature Gran # (Auto) Activ Coag Time Kaolin Heparin Anti-Xa, Unfract 0.55 Sodium 135 L Potassium 4.6 D Chloride 106 Carbon Dioxide 22 Anion Gap 7 BUN 15 Creatinine 1.18 Est Cr Clr Drug Dosing 53.0 eGFR 61.61 BUN/Creatinine Ratio 12.7 Glucose 136 H POC Glucose 152 H Estimat Average Glucose Hemoglobin A1c Calcium 8.8 Phosphorus Magnesium 1.9 Troponin I High Sens 98081.0 H* D Triglycerides Cholesterol LDL Cholesterol, Calc VLDL Cholesterol, Calc HDL Cholesterol Cholesterol/HDL Ratio 25-OH Vitamin D Total TSH Urine Color Urine Appearance Urine pH Ur Specific [place] Urine Protein Urine Glucose (UA) Urine Ketones Urine Blood Urine Nitrite Urine Bilirubin Urine Urobilinogen Ur Leukocyte Esterase Urine WBC (Auto) Urine RBC (Auto) U Hyaline Cast (Auto) U Epithel Cells (Auto) Urine Bacteria (Auto) Tal[place] Crystals Urine Comment Nasal Screen MRSA (PCR) 10/13/24 10/14/24 10/14/24 21:11 00:25 04:51 WBC 7.90 RBC 3.60 L Hgb 11.9 L Hct 35.9 L MCV 99.7 MCH 33.1 MCHC 33.1 RDW Std Deviation 51.7 H RDW Coeff of Jo 14.1 Plt Count 226 MPV 9.8 Immature Gran % (Auto) 0.1 Neut % (Auto) 74.4 Lymph % (Auto) 14.8 [place] % (Auto) 10.1 Eos % (Auto) 0.5 Baso % (Auto) 0.1 Neut # (Auto) 5.87 Lymph # (Auto) 1.17 L [place] # (Auto) 0.80 H Eos # (Auto) 0.04 Baso # (Auto) 0.01 Immature Gran # (Auto) 0.01 Activ Coag Time Kaolin Heparin Anti-Xa, Unfract Sodium 137 Potassium 4.2 Chloride 108 H Carbon Dioxide 24 Anion Gap 5 BUN 14 Creatinine 1.24 Est Cr Clr Drug Dosing 50.4 eGFR 58.05 BUN/Creatinine Ratio 11.3 Glucose 104 H POC Glucose 125 H Estimat Average Glucose 126 Hemoglobin A1c 6.0 H Calcium 8.6 Phosphorus 2.2 L Magnesium 2.3 Troponin I High Sens 90751.6 H* 11590.4 H* Triglycerides 76 Cholesterol 137 LDL Cholesterol, Calc 85 VLDL Cholesterol, Calc 15 HDL Cholesterol 37 Cholesterol/HDL Ratio 3.7 25-OH Vitamin D Total 15.2 L TSH 0.520 Urine Color Urine Appearance Urine pH Ur Specific [place] Urine Protein Urine Glucose (UA) Urine Ketones Urine Blood Urine Nitrite Urine Bilirubin Urine Urobilinogen Ur Leukocyte Esterase Urine WBC (Auto) Urine RBC (Auto) U Hyaline Cast (Auto) U Epithel Cells (Auto) Urine Bacteria (Auto) Tal[place] Crystals Urine Comment Nasal Screen MRSA (PCR) Diagnostic Findings Abdomen/Pelvis CTA 10/13/24 10:16 CT angio abdomen pelvis w con CLINICAL HISTORY: dissection. chest pain, syncope TECHNIQUE: Following the IV administration of 120 cc of Optiray, CT angiogram of the abdomen and pelvis was performed from the lung bases the proximal femora. Images are reviewed in the axial, sagittal, and coronal planes. 3-D MIPS images are created and assessed. All measurements were obtained according to NASCET criteria. IV contrast was administered without complication. A dose lowering technique was utilized adhering to the principles of ALARA. CT DOSE: 1987.92 mGy.cm COMPARISON STUDY: None FINDINGS: There is a moderate hiatal hernia. CTA: There is no abdominal aortic aneurysm or dissection. Mesenteric and renal arteries are widely patent. Visualized arterial outflow shows no significant narrowing. ABDOMEN: Liver, gallbladder, spleen, pancreas, and adrenal glands are unremarkable. Kidneys show no hydronephrosis. Pelvis: Prostate is enlarged. Urinary bladder is nondistended. There is mild sigmoid diverticulosis. No acute diverticulitis. There is mild retained stool. No bowel inflammation or obstruction. No free fluid or free air. No enlarged adenopathy. Osseous structures: There is osteopenia. There are subacute healing fractures laterally at the right sixth and seventh ribs. There is diffuse lumbar degenerative disc disease. There are mild degenerative changes at the hips. No acute osseous finding seen. IMPRESSION: 1. No acute findings. No evidence of abdominal aortic dissection or aneurysm. 2. Otherwise as described. ACT 112: Negative or not required by law. The above report was generated using voice recognition software. It may contain grammatical, syntax or spelling errors. Electronically signed by: Thad Gilliam M.D. 10/13/2024 10:55 AM Chest CTA 10/13/24 10:16 CT ANGIOGRAM OF THE CHEST CLINICAL HISTORY: Chest pain. Syncope. COMPARISON STUDY: Chest x-ray dated 10/13/2024. TECHNIQUE: Following the IV administration of 118 cc of Optiray 320, CT angiogram of the chest was performed from the thoracic inlet to the upper abdomen utilizing the dissection protocol. Images are reviewed in the axial, sagittal, and coronal planes. 3-D MIPS images are created and assessed. IV contrast was administered without complication. A dose lowering technique was utilized adhering to the principles of ALARA. The examination is degraded by motion artifact, as well as by streak artifact from the arms which could not be elevated above the chest. FINDINGS: Thyroid: Imaged portions of the thyroid gland are normal in size and attenuation. Thoracic aorta: The thoracic aorta is normal in caliber and demonstrates standard 3-vessel arch anatomy. No dissection is seen. The arch vessels are widely patent. Pulmonary vasculature: The pulmonary trunk is normal in caliber. There are no central filling defects identified in the pulmonary vessels to suggest pulmonary embolus. Note that this examination was not specifically protocoled to assess for pulmonary emboli. Heart: The heart is normal in size and without pericardial effusion. There is coronary artery atherosclerosis. Lungs and pleural spaces: Evaluation of the lung parenchyma is degraded by motion artifact. No airspace consolidation or pleural effusion is identified. There is no pneumothorax. The trachea and central airways are clear. Dependent scarring/atelectasis is noted at both lung bases. 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 There are scattered calcified granulomas. Mediastinum: There are mildly enlarged mediastinal nodes. AP window nodes measure up to 1.5 cm in short axis. A right paratracheal node measures 1.4 cm in short axis. Angy: An enlarged right hilar node on image #113 measures 2.9 x 2.0 cm. No left hilar adenopathy is seen. Axillae: There is no axillary lymphadenopathy. Upper abdomen: There is a moderate to large hiatal hernia. Diverticulosis is noted in the partially imaged left colon. A 1.5 cm cyst is seen in the upper pole of the kidney. Skeletal structures: The skeletal structures are osteopenic. Degenerative change and mild hyperkyphosis is noted in the thoracic spine. There are mild chronic appearing compression deformities of C6 and C7. Arthritic change is noted in the shoulders. No lytic or blastic bony lesions are seen. There are numerous subacute appearing right-sided (second through sixth) rib fractures. IMPRESSION: 1. Unremarkable CT angiogram of the thoracic aorta. 2. There is no airspace consolidation or pleural effusion. 3. There are numerous subacute/healing right-sided rib fractures. 4. Moderate to large hiatal hernia. 5. There are nonspecific enlarged right hilar and mediastinal lymph nodes. These are pathologically indeterminant, and nonemergent follow-up with pulmonology is recommended as is a follow-up chest CT in 2-3 months time for reevaluation. 6. Additional findings as above. ACT 112: Positive. There are findings on this exam that require communication between the performing entity and the patient following Patient Test Result Information Act ([place] Act 112) guidelines. Electronically signed by: Mina Armenta M.D. 10/13/2024 10:56 AM Coding Level of Care Code 66105 SUB INP/OBS CARE 2/35MIN Diagnoses Acute myocardial infarction I21.9 Lymphadenopathy R59.1
--- NOTE | 2024-10-14 12:27 | CT Scan Report ---
CT head/brain wo con CLINICAL HISTORY: fall, head injury, r/o ICH. TECHNIQUE: Multiple axial CT images of the head were obtained without contrast. A dose lowering tech nique was utilized adhering to the principles of ALARA. CT DOSE: 547.75 mGy.cm COMPARISON: None FINDINGS: There is moderate patchy periventricular hypodensity which is nonspecific, usually represen ts chronic small vessel ischemic change. No intracranial hemorrhage seen. No mass effect, midline jeannie ft, or hydrocephalus. No skull fracture seen. Visualized paranasal sinuses and mastoid air cells are clear. IMPRESSION: No acute findings. ACT 112: Negative or not required by law. The above report was generated using voice recognition software. It may contain grammatical, syntax o r spelling errors. Electronically signed by: Thad Gilliam M.D. 10/14/2024 12:26 PM
--- NOTE | 2024-10-14 13:12 | Hospitalist Progress Note ---
Date of Service October 14, 2024 Assessment & Plan (1) STEMI (ST elevation myocardial infarction): (2) Ischemic cardiomyopathy: (3) LBBB (left bundle branch block): (4) Syncope: (5) GERD without esophagitis: (6) BPH (benign prostatic hyperplasia): (7) Rib fractures: (8) Lymphadenopathy: (9) Tobacco use: (10) Hiatal hernia: (11) Fall: (12) Abrasion of leg, left: (13) Confusion: (14) Prediabetes: (15) Vitamin D deficiency: Plan 84yo male with history of BPH and GERD who presents from home after developing chest pain/upper abdominal pain about 0800 this morning followed by a suspected syncopal event. Upon arrival to [facility] ER his EKG showed a LBBB (no prior EKG for comparison available) and he had ongoing chest pain/abdominal pain. Despite nitroglycerin and narcotic pain medicine his pain persisted. Later EKGs showed ongoing evolution of his ST segments with V5/V6 ST segment elevation. Given his presentation, the presumed new LBBB, ST segment elevations, +troponin, etc. Dr Cameron Shaw from cardiology was contacted and Mr Douglas was advised to have emergent left heart catheterization. Left heart cath showed 100% occluded RCA s/p BRETT x 1. #acute TX / STEMI - -2nd to 100% occluded mid-RCA lesion -s/p successful PCI with BRETT x [address] Shaw - appreciate his assistance -echo with evidence of mild-moderate ischemic CM -start meto tartrate 12.5mg BID; if tolerates can change to meto succ 25mg daily at d/c -defer on COMFORT/ARB at this time -cont asa/plavix -cont statin -recheck HS trop in am to ensure we have seen the peak #LBBB - -2nd to acute TX #syncope - -could have had transient hypotension in the setting of his acute TX vs arrhythmia; latter not seen while here -echocardiogram findings reviewed (EF 35-40%, etc.) -cont telemetry #fall with resulting right-sided rib fractures - -right 2nd-6th rib fractures - likely suffered when he had his fall ~2 weeks ago -pain control - pain meds, lidoderm patches, etc. 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 -will need outpatient monitoring #mild leukopenia, mild anemia - -chronic based on old lab values -check a B12 level #GERD / hiatal hernia - -if on aspirin +/- Plavix/Brilinta he should be on PPI moving forward at a higher dose (was only on omeprazole 20mg daily pre-admission) #BPH - -continue flomax if BP will tolerate #head injury - -suffered 2 weeks ago when he fell -check head CT today #lymphadenopathy - -intra-thoracic lymph nodes seen on CT chest -with his smoking history this will need additional work-up; very suspicious for lung cancer -however, highly doubt he will want any work-up #abrasion of left leg - -due to fall / syncopal event day of admission -local wound care #ischemic CM - -EF 35-40% -start BB -defer on COMFORT/ARB for now due to low-normal BPs -compensated on exam #vitamin D def - -ergocalciferol 92070 units weekly x 8 weeks spoke with pt's son Hiro by phone Hiro & his family have been frustrated and challenged by their father's physical & cognitive decline I agree with Hiro that his father does likely have some underlying cognitive impairment, but he is a/o x 3 and still likely retains capacity to make his own decisions family has recently started to look into placement options for their father - he mentioned [facility] specifically told Hiro we will get PT/OT evals and see if he needs acute rehab if rehab is not needed we won't be able to force Mr Douglas into [facility] or other placement unless he was agreeable (doubt he would be agreeable, however) patient today told me he does NOT plan to f/u with cardiology he "doesn't like doctors" and takes minimalist approach to his health tx to PCU today await PT/OT evals tomorrow Admission and Anticipated Discharge Date Admission Date: October 13, 2024 Subjective patient reports that he "wants to go home" doesn't feel he needs to be here any longer feels fine; no chest pain, no abdominal pain no nausea/emesis no dyspnea on exertion tele by report - wnl tells me he doesn't plan to follow-up with cardiology after discharge; doesn't like going to the doctor's office willing to stay 1 more night willing to undergo CT head due to recent head injury from a fall Review of Systems Review of Systems: CV - no edema, no orthopnea, no PND pulm - no dyspnea or TAVARES or cough GI - no abd pain Physical Exam Physical Exam: gen - a/o x 3, sitting at side of bed, agitated HENT - MMM neck - no JVD heart - s1 s2, RRR, no obvious murmur or rub lungs - CTA b/l abd - soft, NT, BS+, ND, no HSM ext - no edema, pulses b/l feet 2+ vascular - right radial artery without aneurysm or hematoma skin - right forehead with mild bruise Results & Data Results & Data Vital Signs (Past 12 Hours) Vital Signs Temp Pulse Pulse Resp BP BP Pulse Ox 10/14/24 12:30 36.2 C L 60 18 117/72 96 10/14/24 08:00 66 10/14/24 05:15 67 18 103/60 93 10/14/24 04:08 36.6 C 62 19 91/57 L 91 10/14/24 03:08 58 L 18 86/49 L 91 10/14/24 02:00 60 15 95/52 L 91 10/14/24 01:15 36.7 C 73 24 99/63 L 95 O2 Del Method 10/14/24 12:30 Room Air 10/14/24 08:00 10/14/24 05:15 Room Air 10/14/24 04:08 Room Air 10/14/24 03:08 Room Air 10/14/24 02:00 Room Air 10/14/24 01:15 Room Air Laboratory Results Laboratory Results - last 24 hr 10/13/24 10/13/24 10/13/24 13:28 15:15 15:17 WBC RBC Hgb Hct MCV MCH MCHC RDW Std Deviation RDW Coeff of Jo Plt Count MPV Immature Gran % (Auto) Neut % (Auto) Lymph % (Auto) [place] % (Auto) Eos % (Auto) Baso % (Auto) Neut # (Auto) Lymph # (Auto) [place] # (Auto) Eos # (Auto) Baso # (Auto) Immature Gran # (Auto) Activ Coag Time Kaolin 187 H Heparin Anti-Xa, Unfract Sodium Potassium Chloride Carbon Dioxide Anion Gap BUN Creatinine Est Cr Clr Drug Dosing eGFR BUN/Creatinine Ratio Glucose POC Glucose Estimat Average Glucose Hemoglobin A1c Calcium Phosphorus Magnesium Troponin I High Sens Triglycerides Cholesterol LDL Cholesterol, Calc VLDL Cholesterol, Calc HDL Cholesterol Cholesterol/HDL Ratio 25-OH Vitamin D Total TSH Urine Color Yellow Urine Appearance Clear Urine pH 6.0 Ur Specific [place] > 1.045 H Urine Protein 1+ H Urine Glucose (UA) Negative Urine Ketones 1+ H Urine Blood 1+ H Urine Nitrite Negative Urine Bilirubin Negative Urine Urobilinogen Negative Ur Leukocyte Esterase Negative Urine WBC (Auto) 0-5 Urine RBC (Auto) 0-2 U Hyaline Cast (Auto) 0-2 U Epithel Cells (Auto) 0-2 Urine Bacteria (Auto) None Seen [place] Crystals Present H Urine Comment Nasal Screen MRSA (PCR) Negative 10/13/24 10/13/24 10/13/24 15:23 17:58 18:04 WBC RBC Hgb Hct MCV MCH MCHC RDW Std Deviation RDW Coeff of Jo Plt Count MPV Immature Gran % (Auto) Neut % (Auto) Lymph % (Auto) [place] % (Auto) Eos % (Auto) Baso % (Auto) Neut # (Auto) Lymph # (Auto) [place] # (Auto) Eos # (Auto) Baso # (Auto) Immature Gran # (Auto) Activ Coag Time Kaolin Heparin Anti-Xa, Unfract 0.55 Sodium Potassium Chloride Carbon Dioxide Anion Gap BUN Creatinine Est Cr Clr Drug Dosing eGFR BUN/Creatinine Ratio Glucose POC Glucose 133 H 152 H Estimat Average Glucose Hemoglobin A1c Calcium Phosphorus Magnesium Troponin I High Sens 58762.0 H* D Triglycerides Cholesterol LDL Cholesterol, Calc VLDL Cholesterol, Calc HDL Cholesterol Cholesterol/HDL Ratio 25-OH Vitamin D Total TSH Urine Color Urine Appearance Urine pH Ur Specific [place] Urine Protein Urine Glucose (UA) Urine Ketones Urine Blood Urine Nitrite Urine Bilirubin Urine Urobilinogen Ur Leukocyte Esterase Urine WBC (Auto) Urine RBC (Auto) U Hyaline Cast (Auto) U Epithel Cells (Auto) Urine Bacteria (Auto) Talc Crystals Urine Comment Nasal Screen MRSA (PCR) 0710/13/24 10/14/24 19:52 21:11 00:25 WBC RBC Hgb Hct MCV MCH MCHC RDW Std Deviation RDW Coeff of Jo Plt Count MPV Immature Gran % (Auto) Neut % (Auto) Lymph % (Auto) [place] % (Auto) Eos % (Auto) Baso % (Auto) Neut # (Auto) Lymph # (Auto) [place] # (Auto) Eos # (Auto) Baso # (Auto) Immature Gran # (Auto) Activ Coag Time Kaolin Heparin Anti-Xa, Unfract Sodium 135 L Potassium 4.6 D Chloride 106 Carbon Dioxide 22 Anion Gap 7 BUN 15 Creatinine 1.18 Est Cr Clr Drug Dosing 53.0 eGFR 61.61 BUN/Creatinine Ratio 12.7 Glucose 136 H POC Glucose 125 H Estimat Average Glucose Hemoglobin A1c Calcium 8.8 Phosphorus Magnesium 1.9 Troponin I High Sens 46452.6 H* Triglycerides Cholesterol LDL Cholesterol, Calc VLDL Cholesterol, Calc HDL Cholesterol Cholesterol/HDL Ratio 25-OH Vitamin D Total TSH Urine Color Urine Appearance Urine pH Ur Specific [place] Urine Protein Urine Glucose (UA) Urine Ketones Urine Blood Urine Nitrite Urine Bilirubin Urine Urobilinogen Ur Leukocyte Esterase Urine WBC (Auto) Urine RBC (Auto) U Hyaline Cast (Auto) U Epithel Cells (Auto) Urine Bacteria (Auto) Talc Crystals Urine Comment Nasal Screen MRSA (PCR) 10/14/24 04:51 WBC 7.90 RBC 3.60 L Hgb 11.9 L Hct 35.9 L MCV 99.7 MCH 33.1 MCHC 33.1 RDW Std Deviation 51.7 H RDW Coeff of Jo 14.1 Plt Count 226 MPV 9.8 Immature Gran % (Auto) 0.1 Neut % (Auto) 74.4 Lymph % (Auto) 14.8 [place] % (Auto) 10.1 Eos % (Auto) 0.5 Baso % (Auto) 0.1 Neut # (Auto) 5.87 Lymph # (Auto) 1.17 L [place] # (Auto) 0.80 H Eos # (Auto) 0.04 Baso # (Auto) 0.01 Immature Gran # (Auto) 0.01 Activ Coag Time Kaolin Heparin Anti-Xa, Unfract Sodium 137 Potassium 4.2 Chloride 108 H Carbon Dioxide 24 Anion Gap 5 BUN 14 Creatinine 1.24 Est Cr Clr Drug Dosing 50.4 eGFR 58.05 BUN/Creatinine Ratio 11.3 Glucose 104 H POC Glucose Estimat Average Glucose 126 Hemoglobin A1c 6.0 H Calcium 8.6 Phosphorus 2.2 L Magnesium 2.3 Troponin I High Sens 24103.4 H* Triglycerides 76 Cholesterol 137 LDL Cholesterol, Calc 85 VLDL Cholesterol, Calc 15 HDL Cholesterol 37 Cholesterol/HDL Ratio 3.7 25-OH Vitamin D Total 15.2 L TSH 0.520 Urine Color Urine Appearance Urine pH Ur Specific [place] Urine Protein Urine Glucose (UA) Urine Ketones Urine Blood Urine Nitrite Urine Bilirubin Urine Urobilinogen Ur Leukocyte Esterase Urine WBC (Auto) Urine RBC (Auto) U Hyaline Cast (Auto) U Epithel Cells (Auto) Urine Bacteria (Auto) Talc Crystals Urine Comment Nasal Screen MRSA (PCR) Diagnostic Findings echo: EF 35-40%, inferolateral/inferior hypokinesis; lateral hypokinesis PG Care Time/CCT Total # of Minutes Spent Total Time Spent with Patient: Total time spent is greater than 50% in coordination of care (as documented) at patient's floor/unit and/or counseling patient: Coding Level of Care Code 31769 SUB INP/OBS CARE 3/50MIN Diagnoses STEMI (ST elevation myocardial infarction) I21.3 Ischemic cardiomyopathy I25.5 LBBB (left bundle branch block) I44.7 Syncope R55 GERD without esophagitis K21.9 Benign prostatic hyperplasia with urinary frequency N40.1; R35.0 Lower urinary tract symptom detail: urinary frequency Lower urinary tract symptom presence: symptoms present Rib fractures S22.49XA Lymphadenopathy R59.1 Tobacco use Z72.0 Hiatal hernia K44.9 Fall W19.XXXA Abrasion of leg, left S80.812A Confusion R41.0 Prediabetes R73.03 Vitamin D deficiency E55.9 (6) BPH (benign prostatic hyperplasia) Lower urinary tract symptom detail: urinary frequency Lower urinary tract symptom presence: symptoms present Qualified Code(s): N40.1 - Benign prostatic hyperplasia with lower urinary tract symptoms; R35.0 - Frequency of micturition
--- NOTE | 2024-10-14 13:41 | Cardiology Progress Note ---
Date of Service October 14, 2024 Assessment & Plan (1) Acute myocardial infarction: Plan: Acute 100% mid RCApost BRETT 10/13/2024 2. Moderate nonculprit CAD40% ostial/distal left main 3. ICMEF 35 to 40% 4. Mild mitral regurgitation 5. Intraprocedure cardiogenic shock 6. GERD 7. DyslipidemiaLDL 85 Stable post PCI yesterday No recurrent chest pain. Troponin peaking Hemodynamically and electrically stable. No apparent access site complications Continue DAPT with aspirin, clopidogrel Start metoprolol 12.5 twice daily today, transition metoprolol XL to 25 mg on discharge Continue statin Continue PPI Will add ARB as an outpatient as BP allows Discussed cardiac rehab and he is not interested due to logistical challenges Appreciate ICU and hospital medicine care. From a cardiac standpoint okay with discharge tomorrow morning. Admission and Anticipated Discharge Date Admission Date: October 13, 2024 Subjective No events overnight. Denies any chest pain or shortness of breath this morning. States did not sleep overnight due to people waking him up all night. Per report was somewhat agitated earlier this morning. Head CT negative. Telemetry reviewedno event Review of Systems Review of Systems: All systems reviewed & are unremarkable except as noted in HPI & below Physical Exam Physical Exam: General: Comfortable HEENT: Sclerae anicteric Lungs: Clear to auscultation anteriorly Cardiac: Regular rate and rhythm, no murmurs. Vascular: Right radial artery access site with no ecchymosis, hematoma. Distal pulse and sensation intact. Abdomen: Soft, nontender Extremities: Well perfused, no peripheral edema Neuro: Nonfocal Psych: Alert oriented Results & Data Vital Signs (Past 12 Hours) Vital Signs Temp Pulse Pulse Resp BP BP Pulse Ox 10/14/24 12:30 97.2 F L 60 18 117/72 96 10/14/24 10:03 59 L 20 92 10/14/24 09:08 92/63 L 10/14/24 09:00 65 92 10/14/24 08:09 65 94 10/14/24 08:08 94/58 L 10/14/24 08:00 66 10/14/24 07:08 89/61 L 10/14/24 07:06 59 L 20 92 10/14/24 05:15 67 18 103/60 93 10/14/24 04:08 97.9 F 62 19 91/57 L 91 10/14/24 03:08 58 L 18 86/49 L 91 10/14/24 02:00 60 15 95/52 L 91 O2 Del Method 10/14/24 12:30 Room Air 10/14/24 10:03 10/14/24 09:08 10/14/24 09:00 10/14/24 08:09 10/14/24 08:08 10/14/24 08:00 10/14/24 07:08 10/14/24 07:06 10/14/24 05:15 Room Air 10/14/24 04:08 Room Air 10/14/24 03:08 Room Air 10/14/24 02:00 Room Air PG Care Time/CCT Total # of Minutes Spent Total Time Spent with Patient: Total time spent is greater than 50% in coordination of care (as documented) at patient's floor/unit and/or counseling patient: Coding Level of Care Code 28028 SUB INP/OBS CARE 2/35MIN Diagnoses Acute myocardial infarction I21.9
[2024-10-14] MEDS: METOPROLOL TARTRATE 25 MG TAB PO SCH (14:22)
[2024-10-15 07:02] LABS: Anion Gap 6.0 (3-11); Blood Urea Nitrogen 15.0 mg/dl (6-23); Calcium 8.8 mg/dl (8.6-10.3); Carbon Dioxide 27.0 mmol/L (21-32); Chloride 105.0 mmol/L (98-107); Creatinine Clr Calc Pharmacy 50.4 ml/min; Glucose 98.0 mg/dl (70-99(Fasting)); Potassium 3.8 mmol/L (3.5-5.1); Sodium 138.0 mmol/L (136-145)
[2024-10-15 08:11] VITALS: RESP 16; O2SAT 97
[2024-10-15] MEDS: CLOPIDOGREL BISULFATE 75MG Homepack PO ONE (08:58)
--- NOTE | 2024-10-15 10:47 | Cardiology Progress Note ---
Date of Service October 15, 2024 Assessment & Plan (1) Acute myocardial infarction: Plan: Acute 100% mid RCApost BRETT 10/13/2024 2. Moderate nonculprit CAD40% ostial/distal left main 3. ICMEF 35 to 40% 4. Mild mitral regurgitation 5. Intraprocedure cardiogenic shock 6. GERD 7. DyslipidemiaLDL 85 Stable from a cardiac standpoint. No recurrent chest pain. Troponin downtrending Electrically stable. Borderline low BPs on low dose metoprolol but asymptomatic No apparent access site complications From a cardiac standpoint OK with discharge today. Home on: DAPT with aspirin, clopidogrel Toprol XL 25mg Will try to add ARB as an outpatient as BP allows Continue statin Continue PPI Discussed cardiac rehab and he is not interested due to logistical challenges Follow-up with me on 10/28 at 3pm. Admission and Anticipated Discharge Date Admission Date: October 13, 2024 Subjective Feeling well this morning. Denies any chest pain, shortness of breath. No other new concerns. Tele reviewed - no events. Review of Systems Review of Systems: All systems reviewed & are unremarkable except as noted in HPI & below Physical Exam Physical Exam: General: Comfortable HEENT: Sclerae anicteric Lungs: Clear to auscultation anteriorly Cardiac: Bradycardic, regular, no murmurs. Vascular: Right radial artery access site with no ecchymosis, hematoma. Distal pulse and sensation intact. Abdomen: Soft, nontender Extremities: Well perfused, no peripheral edema Neuro: Nonfocal Psych: Hard of hearing, Alert oriented Results & Data Vital Signs (Past 12 Hours) Vital Signs Temp Pulse Pulse Pulse Resp BP BP 10/15/24 08:10 97.9 F 61 16 109/70 10/15/24 08:00 58 L 10/15/24 03:01 98.4 F 60 20 90/60 L 10/15/24 00:43 92/68 L 10/14/24 23:59 67 10/14/24 23:25 86/55 L 10/14/24 23:13 98.4 F 69 18 85/55 L Pulse Ox O2 Del Method 10/15/24 08:10 97 Room Air 10/15/24 08:00 10/15/24 03:01 92 Room Air 10/15/24 00:43 10/14/24 23:59 10/14/24 23:25 10/14/24 23:13 91 Room Air PG Care Time/CCT Total # of Minutes Spent Total Time Spent with Patient: Total time spent is greater than 50% in coordination of care (as documented) at patient's floor/unit and/or counseling patient: Coding Level of Care Code 98639 SUB INP/OBS CARE 2/35MIN Diagnoses Acute myocardial infarction I21.9
--- NOTE | 2024-10-15 11:45 | Discharge Summary ---
Discharge Summary Date of Service October 15, 2024 Principal Dx & Hospital Course #1 = Principal Diagnosis (1) STEMI (ST elevation myocardial infarction): (2) Ischemic cardiomyopathy: (3) LBBB (left bundle branch block): (4) Syncope: (5) GERD without esophagitis: (6) BPH (benign prostatic hyperplasia): (7) Rib fractures: (8) Lymphadenopathy: (9) Tobacco use: (10) Hiatal hernia: (11) Fall: (12) Abrasion of leg, left: (13) Confusion: (14) Prediabetes: (15) Vitamin D deficiency: Plan 84yo male with history of BPH and GERD who presents from home after developing chest pain/upper abdominal pain about 0800 this morning followed by a suspected syncopal event. Upon arrival to [facility] ER his EKG showed a LBBB (no prior EKG for comparison available) and he had ongoing chest pain/abdominal pain. Despite nitroglycerin and narcotic pain medicine his pain persisted. Later EKGs showed ongoing evolution of his ST segments with V5/V6 ST segment elevation. Given his presentation, the presumed new LBBB, ST segment elevations, +troponin, etc. Dr Cameron Shaw from cardiology was contacted and Mr Douglas was advised to have emergent left heart catheterization. Left heart cath showed 100% occluded RCA s/p BRETT x 1. #acute IN / STEMI - -2nd to 100% occluded mid-RCA lesion -s/p successful PCI with BRETT x [address] Shaw - appreciate his assistance -echo with evidence of mild-moderate ischemic CM -start meto tartrate 12.5mg BID; if tolerates can change to meto succ 25mg daily at d/c -defer on COMFORT/ARB at this time -cont asa/plavix -cont statin -recheck HS trop in am to ensure we have seen the peak #LBBB - -2nd to acute IN #syncope - -could have had transient hypotension in the setting of his acute IN vs arrhythmia; latter not seen while here -echocardiogram findings reviewed (EF 35-40%, etc.) -cont telemetry #fall with resulting right-sided rib fractures - -right 2nd-6th rib fractures - likely suffered when he had his fall ~2 weeks ago -pain control - pain meds, lidoderm patches, etc. -replace low vit D -of note - fall was accidental; he had no prodromal cardiopulmonary symptoms prior to the fall #mild confusion - -pain meds in ER, hypotension, etc all likely to blame -improved today -due to recent head injury (as proven by bruise on head) and now on DAPT will check head CT to ensure no subacute ICH #hypokalemia - -replaced/resolved -mag normal #hyperglycemia - -hemoglobin a1c c/w pre-DM -- a1c 6% -will group counselor patient -will need outpatient monitoring #mild leukopenia, mild anemia - -chronic based on old lab values -check a B12 level #GERD / hiatal hernia - -if on aspirin +/- Plavix/Brilinta he should be on PPI moving forward at a higher dose (was only on omeprazole 20mg daily pre-admission) #BPH - -continue flomax if BP will tolerate #head injury - -suffered 2 weeks ago when he fell -check head CT today #lymphadenopathy - -intra-thoracic lymph nodes seen on CT chest -with his smoking history this will need additional work-up; very suspicious for lung cancer -however, highly doubt he will want any work-up #abrasion of left leg - -due to fall / syncopal event day of admission -local wound care #ischemic CM - -EF 35-40% -start BB -defer on COMFORT/ARB for now due to low-normal BPs -compensated on exam #vitamin D def - -ergocalciferol 93834 units weekly x 8 weeks spoke with pt's son Hiro by phone Hiro & his family have been frustrated and challenged by their father's physical & cognitive decline I agree with Hiro that his father does likely have some underlying cognitive impairment, but he is a/o x 3 and still likely retains capacity to make his own decisions family has recently started to look into placement options for their father - he mentioned [facility] specifically told Hiro we will get PT/OT evals and see if he needs acute rehab if rehab is not needed we won't be able to force Mr Douglas into [facility] or other placement unless he was agreeable (doubt he would be agreeable, however) patient today told me he does NOT plan to f/u with cardiology he "doesn't like doctors" and takes minimalist approach to his health tx to PCU today await PT/OT evals tomorrow Admission HPI Per Admitting Provider 84yo male with h/o BPH and GERD who presented via EMS due to ongoing chest pain/upper abdominal pain beginning about 0800 this morning. Patient told his family that he slept poorly last night, then about 0800 he went out to the family's barn to feed 2 cows. After finishing that task he began to walk back to the house at which point he developed severe lower chest pain and upper abdominal pain. He "couldn't make it back" [to the house] and collapsed to the ground. He is not sure if he passed out. Apparently some individuals were driving past the house and saw him lying on the ground and stopped to check on him. At that point 911 was called. Since arrival to [facility] he has had continued lower chest and upper abdominal pain. EKG showed NSR with LBBB; unfortunately no prior EKG was available for comparison. He had transient relief of pain with IV dilaudid earlier in the ER visit. By the time of my assessment his pain was 6/10 on pain scale. Numerous times, however, he was grimacing in pain and holding his chest and upper abdomen with his arm. He does report having had a fall about 2 weeks ago. He struck the front of his head, his face, and the right chest wall. He had pain for several days in the right chest but today the pain he is having is much different. In addition to the pain he has been short of breath all morning, has had nausea, and had multiple episodes of emesis. He also suffered a mild abrasion inferior to the left knee from today's syncope/fall episode. During my assessment, due to ongoing pain, 1 SL nitro x 1 was given with relief of pain to 3/10. However, with the nitro, his BP dropped to the low 80s systolic. Fluid bolus was given, and heparin drip was started. Patient denies any prior episodes of exertional chest pain or exertional dyspnea. The fall 2 weeks ago was accidental, tripping on his shoelace. No headaches despite the report of hitting his head. Discharge Exam gen - a/o x 3, sitting at side of bed, agitated HENT - MMM neck - no JVD heart - s1 s2, RRR, no obvious murmur or rub lungs - CTA b/l abd - soft, NT, BS+, ND, no HSM ext - no edema, pulses b/l feet 2+ vascular - right radial artery without aneurysm or hematoma skin - right forehead with mild bruise Discharge Plan Discharge Items Reason For Visit: CARDIOGENIC SYCOPE Condition on Discharge: Serious Follow-up/Referrals: Radha Butler CRNP [Primary Care Provider] - 10/22/24 10:30 am Cameron Shaw MD [Physician] - 10/28/24 3:00 pm (cardiology) Addtl Attending Provider Instructions: POST CARDIAC CATH ACTIVITY RECOMMENDATIONS: Excess manipulation of the wrist should be avoided for the next 24-48 hours. * No lifting over 2 pounds (approximately a 1/2 gallon of milk) with the utilized arm for 24 hours. * No strenuous activity for 3 days. * Keep the site of the procedure covered with a bandage for 24 hours. *You may shower the day after the procedure. Do not take a tub bath or submerge the puncture site in water for the next 3 days. *Do not operate any motorized equipment for 3 days. SPECIAL CARE INSTRUCTIONS: The site may be slightly bruised and sore following your procedure. Should any of the following occur, contact the Dr. who performed your procedure. 1. Redness/inflammation, swelling, chills, or fever, or colored drainage at procedure site within 3-7 days after your procedure. 2. Coldness, discoloration, ongoing numbness, severe pain, or swelling. Expect mild tingling of hand and tenderness at the puncture site for up to three days. If this persists beyond three days, or other symptoms develop, notify the Dr. who performed your procedure. BLEEDING: If the procedure site on your wrist begins to bleed, do not panic 1. Place 1 or 2 fingers firmly just slightly above the insertion site to stop the bleeding. You may be able to feel your pulse as you hold pressure. 2. Lift your finger after 5 minutes to see if the bleeding has stopped. 3. Once the bleeding has stopped, gently wipe the wrist area clean with a bandage. * If the bleeding from your wrist does not stop after 10 minutes, or if there is a large amount of bleeding or spurting, call 911 (do not drive yourself to the hospital). SKIN IRRITATION: * You may experience some redness and/or swelling in the area where radiation was administered. If any skin irritation occurs, please contact your family physician. FOLLOW UP VISIT: Follow-up with Dr. Shaw (Cardiology) on 10/28/2024 at 3 pm at [address] [facility], [address]. If any problems call office [phone] or cell at [phone]. Stand-Alone Forms: My [facility] [employer] Medications and DC Order Prescriptions: No Action omeprazole 20 mg capsule,delayed release(DR/EC) 20 mg PO DAILY Qty: 90 3RF Rx Instructions: at bedtime tamsulosin 0.4 mg capsule 0.4 mg PO DAILY Qty: 30 5RF aspirin [Adult Aspirin Regimen] 81 mg tablet,delayed release (DR/EC) 0 mg PO DAILY Patient Comments: 10/13- otc unable to verify triamcinolone acetonide 0.1 % cream 1 applic topical UD Patient Comments: 10/13- last filled 08/23 15 day supply Rx Instructions: APPLY SPARINGLY AND MASSAGE IN TWICE DAILY. melatonin 5 mg capsule 5 - 10 mg PO UD Patient Comments: 10/13- otc unable to verify Rx Instructions: 1 or 2 1 hr before bed orally; Krames/Other Patient Handouts: A1C Admission Data Admit Date/Time: 10/13/24 14:03 Attending Provider: Daniel Stein Admit Provider: Cameron Shaw Primary Care Provider: Radha Butler Other Providers: Wilmar Mao; Daniel Stein Other Interventions: Discharge Summary Assessment (RN) Last Done: 10/15/24 11:06 Hospital Stay Data Consultations 10/13/24 11:34 ED Decision to Admit Stat 10/13/24 14:03 Consult Inspector Of Dredging Routine 10/13/24 14:05 Consult Inspector Of Dredging Routine Procedures Performed Operation Date: 10/13/24 12:30 Actual Procedures p Cineradiography w/Routine Exam - Cameron Shaw MD p Aspiration/PCI w/BRETT for Stemi - Cameron Shaw MD Diagnostic Imagining Performed 10/13/24 10:16 CTA abdomen pelvis w con [CT angio abdomen pelvis w con] Stat CTA chest w con [CT angio chest w con] Stat 10/13/24 12:16 CL Cath Imgs for PACS use only Stat 10/14/24 11:56 CT head/brain wo con Stat Discharge Instructions Given to Patient (Per Discharging Provider) POST CARDIAC CATH ACTIVITY RECOMMENDATIONS: Excess manipulation of the wrist should be avoided for the next 24-48 hours. * No lifting over 2 pounds (approximately a 1/2 gallon of milk) with the utilized arm for 24 hours. * No strenuous activity for 3 days. * Keep the site of the procedure covered with a bandage for 24 hours. *You may shower the day after the procedure. Do not take a tub bath or submerge the puncture site in water for the next 3 days. *Do not operate any motorized equipment for 3 days. SPECIAL CARE INSTRUCTIONS: The site may be slightly bruised and sore following your procedure. Should any of the following occur, contact the Dr. who performed your procedure. 1. Redness/inflammation, swelling, chills, or fever, or colored drainage at procedure site within 3-7 days after your procedure. 2. Coldness, discoloration, ongoing numbness, severe pain, or swelling. Expect mild tingling of hand and tenderness at the puncture site for up to three days. If this persists beyond three days, or other symptoms develop, notify the Dr. who performed your procedure. BLEEDING: If the procedure site on your wrist begins to bleed, do not panic 1. Place 1 or 2 fingers firmly just slightly above the insertion site to stop the bleeding. You may be able to feel your pulse as you hold pressure. 2. Lift your finger after 5 minutes to see if the bleeding has stopped. 3. Once the bleeding has stopped, gently wipe the wrist area clean with a bandage. * If the bleeding from your wrist does not stop after 10 minutes, or if there is a large amount of bleeding or spurting, call 911 (do not drive yourself to the hospital). SKIN IRRITATION: * You may experience some redness and/or swelling in the area where radiation was administered. If any skin irritation occurs, please contact your family physician. FOLLOW UP VISIT: Follow-up with Dr. Shaw (Cardiology) on 10/28/2024 at 3 pm at [address] [facility], [address]. If any problems call office [phone] or cell at [phone]. Coding Diagnoses STEMI (ST elevation myocardial infarction) I21.3 Ischemic cardiomyopathy I25.5 LBBB (left bundle branch block) I44.7 Syncope R55 GERD without esophagitis K21.9 Benign prostatic hyperplasia with urinary frequency N40.1; R35.0 Lower urinary tract symptom presence: symptoms present Lower urinary tract symptom detail: urinary frequency Rib fractures S22.49XA Lymphadenopathy R59.1 Tobacco use Z72.0 Hiatal hernia K44.9 Fall W19.XXXA Abrasion of leg, left S80.812A Confusion R41.0 Prediabetes R73.03 Vitamin D deficiency E55.9
[2024-10-15 11:51] VITALS: TEMP 97.5
[2024-10-15 11:58] VITALS: BP 92/68; PULSE 60
--- NOTE | 2024-10-16 05:26 | Electrocardiogram Report ---
Test Reason : Blood Pressure : */* mmHG Vent. Rate : 60 BPM Atrial Rate : 60 BPM P-R Int : 196 ms QRS Dur : 150 ms QT Int : 482 ms P-R-T Axes : 73 -25 110 degrees QTcB Int : 482 ms Normal sinus rhythm Left bundle branch block Abnormal ECG No previous ECGs available Confirmed by Tray Ferreira ([id number]) on 10/16/2024 5:26:02 AM Referred By: Confirmed By: Tray Ferreira
--- NOTE | 2024-10-16 05:26 | Electrocardiogram Report ---
Test Reason : Blood Pressure : */* mmHG Vent. Rate : 66 BPM Atrial Rate : 66 BPM P-R Int : 196 ms QRS Dur : 150 ms QT Int : 448 ms P-R-T Axes : -1 -4 173 degrees QTcB Int : 469 ms Normal sinus rhythm Left bundle branch block Abnormal ECG When compared with ECG of 13-Oct-2024 09:26, No significant change Confirmed by Tray Ferreira ([id number]) on 10/16/2024 5:26:22 AM Referred By: REFERRED SELF Confirmed By: Tray Ferreira
--- NOTE | 2024-10-16 05:27 | Electrocardiogram Report ---
Test Reason : Blood Pressure : */* mmHG Vent. Rate : 59 BPM Atrial Rate : 59 BPM P-R Int : 194 ms QRS Dur : 150 ms QT Int : 474 ms P-R-T Axes : -3 -9 182 degrees QTcB Int : 469 ms Sinus bradycardia Left bundle branch block Abnormal ECG When compared with ECG of 13-Oct-2024 10:59, ST more elevated in Anterolateral leads Confirmed by Tray Ferreira ([id number]) on 10/16/2024 5:26:55 AM Referred By: REFERRED SELF Confirmed By: Tray Ferreira
--- NOTE | 2024-10-16 05:27 | Electrocardiogram Report ---
Test Reason : Blood Pressure : */* mmHG Vent. Rate : 66 BPM Atrial Rate : 66 BPM P-R Int : 194 ms QRS Dur : 142 ms QT Int : 458 ms P-R-T Axes : 72 2 152 degrees QTcB Int : 480 ms Normal sinus rhythm Left bundle branch block Abnormal ECG When compared with ECG of 13-Oct-2024 12:10, No significant change Confirmed by Tray Ferreira ([id number]) on 10/16/2024 5:27:38 AM Referred By: REFERRED SELF Confirmed By: Tray Ferreira
--- NOTE | 2024-10-16 05:27 | Electrocardiogram Report ---
Test Reason : Blood Pressure : */* mmHG Vent. Rate : 71 BPM Atrial Rate : 71 BPM P-R Int : 184 ms QRS Dur : 138 ms QT Int : 452 ms P-R-T Axes : 58 -11 139 degrees QTcB Int : 491 ms Normal sinus rhythm with sinus arrhythmia Left bundle branch block Abnormal ECG When compared with ECG of 13-Oct-2024 12:10, ST no longer elevated in Anterolateral leads Confirmed by Tray Ferreira ([id number]) on 10/16/2024 5:27:24 AM Referred By: REFERRED SELF Confirmed By: Tray Ferreira
== END 2024-10-15 12:45 | disposition home or self-care (01) | DRG 321 ==
LOC: ED 09:15 → CC 12:26 → 1E 12:27 → 2S 10-14 11:56